=== PATIENT | female | born 1940 | race Caucasian/White ===

== ENCOUNTER 2016-07-07 02:55 | Observation (INO) ==
[2016-07-07] MEDS ORDERED: Azithromycin 500 MG in D5% in Water 250 ML IVPB ONE (02:57)
[2016-07-07] MEDS ORDERED: CefTRIAXone 1,000 MG in D5% in Water (Mini-Bag+) 100 ML IVPB ONE (02:57)
[2016-07-07] MEDS ORDERED: Ipratropium/Albuterol Neb 3 ML IH ONE (02:57)
[2016-07-07] MEDS ORDERED: 0.9 % Sodium Chloride 1,000 ML IVC SCH ×2 (03:00→09:19)
--- NOTE | 2016-07-07 03:06 | Emergency Department Note ---
Disposition Clinical Impression: Acute exacerbation of chronic obstructive airways disease, Community acquired pneumonia Disposition: Admitted As Inpatient Condition: Fair Referrals: NO,PCP [Primary Care Provider] - Forms: ED Satisfaction Letter Time of Disposition: 05:16 (kirk bobbi) SOB HPI - General Chief Complaint: ED Shortness of Breath/Dyspnea Stated Complaint: DEEPTHI/CHEST DISCOMFORT Time Seen by Provider: 07/07/16 02:56 Source: patient Mode of arrival: ambulatory Limitations: physical limitation (dysneanic) Nursing Notes Reviewed: Yes Vital Signs Reviewed: Yes - Related Data Home Medications Medication Instructions Recorded Confirmed No Known Home Drugs 02/29/16 07/07/16 Allergies Allergy/AdvReac Type Severity Reaction Status Date / Time No Known Allergies Allergy Verified 07/07/16 03:10 All systems ED: reviewed and negative except as stated. Constitutional: Reports: fever, chills. Denies: weakness Eyes: Denies: eye pain, eye discharge ENT ED: Denies: ear pain, throat pain Cardiovascular: Reports: palpitations. Denies: chest pain Respiratory: Reports: cough, dyspnea, wheezes, sputum production Gastrointestinal: Denies: abdominal pain, nausea, vomiting Genitourinary: Denies: urgency, dysuria Musculoskeletal: Denies: back pain, neck pain Integumentary: Denies: rash, abrasion Neurological: Denies: headache, weakness Psychiatric: Denies: anxiety Endocrine: Denies: fatigue Hematological/Lymphatic: Denies: easy bleeding Allergic/Immunologic: Denies: facial swelling Past Medical History - Past Medical History Attestation: Yes The following information was validated with the patient. Source: patient, old records reviewed, nursing notes reviewed Medical history: Reports: COPD, other (Bradycardia patient is supposed to have a pacemaker but refused to have it done 4-5 years ago patient is been to urgent care in the past has refused workup for COPD chest pain) Surgical history: Reports: cholecystectomy - Social History Smoking Status: Current some day smoker Smokeless Tobacco Status: No Alcohol use: Reports: none Physical Exam - General Limitations: physical limitation General appearance: alert, in no apparent distress, anxious - Head Head exam: atraumatic, normocephalic, normal inspection - Eye Eye exam: Present: normal appearance, PERRL, EOMI - ENT ENT exam: normal exam, normal oropharynx, mucous membranes moist, TM's normal bilaterally, normal external ear exam, other (PND) - Neck Neck exam: Present: normal inspection, full ROM, trachea midline - Chest Chest inspection: Present: normal inspection, symmetric chest wall rise - Respiratory Respiratory exam: Present: wheezes, accessory muscle use, prolonged expiratory phase - Cardiovascular Cardiovascular exam: Present: bradycardia, normal heart sounds - Abdominal Exam Abdominal exam: Present: soft, Non-Tender, normal bowel sounds - Expanded Upper Extremity Exam Shoulder exam: Present: normal inspection, full ROM Arm exam: Present: normal inspection, full ROM Elbow exam: Present: normal inspection, full ROM Forearm/Wrist exam: Present: normal inspection, full ROM Hand exam: Present: normal inspection, full ROM Vascular exam: Normal: capillary refill, radial pulse - Expanded Lower Extremity Exam Hip/Pelvis exam: Present: normal inspection, full ROM Upper leg exam: Present: normal inspection, full ROM Knee exam: Present: normal inspection, full ROM Lower leg exam: Present: normal inspection, full ROM Ankle exam: Present: normal inspection, full ROM Foot/toe exam: Present: normal inspection, full ROM Neurovascular/Tendon exam: Present: normal capillary refill, normal fine/light touch. Absent: motor deficit, sensory deficit, tendon deficit Gait: observed and normal - Back Exam Back exam: Present: normal inspection, full ROM. Absent: muscle spasm - Neurological Exam Neurological exam: Present: alert, oriented X3, CN II-XII intact - Psychiatric Psychiatric exam: Present: normal affect, normal mood - Skin Skin exam: Present: warm, dry, intact, normal color Course Course Narrative: Patient immediately seen and examined patient was immediately noted to be in bradycardia which appears to be actually a third heart block patient though with respiratory difficulty patient states though that her arrhythmia is unchanged from prior she is noted to have a slow heart rate states that she has had the cough and congestion she is having the dyspnea she is immediately given aerosol treatments coughing of yellow-green phlegm given a container to obtain specimen IV established antibiotics started laboratory results pending anticipated admission - Reevaluation(s) Reevaluation #1: Patient's 31 made it clear that she will not be transferred she will go home being transferred despite the fact that she shows evidence of bleeding in the third degree heart block and findings are consistent with advanced COPD with probably underlying pneumonia bronchitis Reevaluation #2: Spoke with patient about her cardiac arrhythmia she does not want a pacemaker does not want cardiac evaluation and she has been told that she had a mild heart attack the bottom portion of her heart is which is why she has a heart block in addition to this she is agreeable to staying only at our facility she refuses to be transferred to fungal to transfer her she said she will sign out AMA and due the fact the patient has lower lobe pneumonia she is agreed to stay here spoke with Dr. Black advised him of the situation chance to MedSurg stable Shortness of Breath/Dyspnea - MDM Narrative Medical decision making narrative: Patient seen and discussed the potential stated that included of pneumonia which could be influenza from the fact is that she has had fever for the past week she has got underlying COPD which could be a mucopurulent bronchitis which could also because some of the respiratory distress concerns her is that she may have an underlying myocardial infarction congestive heart failure cardiac arrhythmia which could be precipitating the events today I am even concerned this may Lung Cancer - Differential Diagnosis Likely: acute exacerbation of chronic obstructive airways disease, congestive heart failure, pneumonia, arrhythmia (complete heart block) - Medical Records Medical records reviewed: Yes I reviewed the patient's medical records. - Lab Data Lab results reviewed: Yes I reviewed the patient's lab results. - Radiology Data Radiology results reviewed: Yes I reviewed the patient's radiology results. ITS Impressions Chest X-Ray 07/07/16 02:56 IMPRESSION: No evidence for acute cardiopulmonary process. COPD. D/ / Regulo Sawant MD / Rgeulo Sawant MD Interpreting Provider: Regulo Sawant MD Chest CT 07/07/16 04:17 IMPRESSION: 1. Significantly limited study due to motion artifact. 2. Left lower lobe airspace disease could represent atelectasis or pneumonia. 3. Coronary artery disease. 4. Pulmonary nodules are suspected. Repeat chest CT is recommended once the patient is able to successfully suspend respirations. D/ / Nino Forrester MD / Nino Forrester MD Interpreting Provider: Nino Forrester MD - EKG Data EKG attestation: Yes I reviewed and interpreted this EKG. EKG results narrative: EKG rate 43 [place] appear to be wandering it marches out to be consistent 3rd degree heart block QRS 141 QT 497 access 101 Critical Care Time Critical Care Time: Yes Total Critical Care Time: 35 Attestation: Critical care performed: 35 minutes secondary to patient's respiratory difficulty but in addition that it appears that she is in a third-degree heart block but this may be chronic in etiology Time is exclusive of separately billable procedures. Time includes: direct patient care, patient reassessment, coordination of patient care, interpretation of data (laboratory data, radiology data, and respiratory data), review of patient's medical records, medical consultation and documentation of patient care. Procedures included in critical care time: Procedures excluded from critical care time:
[2016-07-07 03:48] LABS: INR 1.2; Prothrombin Time 12.8 Seconds (9.4-12.1)
[2016-07-07 03:58] LABS: BUN/Creatinine Ratio 21 (6-26); Blood Urea Nitrogen 18 mg/dL (7-20); Calcium 9.3 mg/dL (8.6-10.8); Carbon Dioxide 22 mEq/L (19-29); Chloride 104 mEq/L (98-109); Glucose 103 mg/dL (70-99); Osmolality,Calculated 294 (280-300); Potassium 3.8 mEq/L (3.5-4.5); Sodium 141 mEq/L (136-145); eGFR For African Americans > 60 (> 60); eGFR For Non-African Americans > 60 (> 60)
[2016-07-07 04:06] LABS: Hematocrit 46.6 % (35.3-44.9); Hemoglobin 15.5 g/dL (11.5-15.4); Mean Corpuscular HGB Conc 33.3 g/dL (31.6-35.5); Mean Corpuscular Volume 87.3 fL (83.0-100.0); Mean Platelet Volume 10.4 fL (9.4-12.4); Platelet Count 294 K/mcL (140-400); Red Blood Count 5.34 M/mcL (3.82-4.97); Red Cell Distribution Width 13.6 % (11.5-14.5)
[2016-07-07 04:15] LABS: Lymphocytes # 3.8 K/mcL (0.6-4.6); Monocytes # 1.3 K/mcL (0.0-1.3); Neutrophils # 10.8 K/mcL (1.6-8.9)
[2016-07-07 04:16] LABS: Anisocytosis 1+ (Not Present); Dohle Bodies Present (Not Present); Large Platelets Present (Not Present); Platelet Estimate Normal (Normal)
[2016-07-07 04:17] LABS: Toxic Granulation Present (Not Present)
[2016-07-07 04:18] LABS: Reactive Lymphocytes Present (Not Present); Smudge Cells Present (Not Present)
[2016-07-07] MEDS ORDERED: FLU VACC QS2016-17 36MOS UP/PF 0.5 ML SYRINGE IM ONE ×2 (08:44→09:19)
[2016-07-07] MEDS ORDERED: Ibuprofen 400 MG TABLET PO PRN ×2 (09:19→09:23)
[2016-07-07] MEDS ORDERED: Ondansetron ODT 4 MG TAB.RAPDIS SL PRN ×2 (09:19→09:23)
[2016-07-07] MEDS ORDERED: Naloxone 0.4 MG/ML INJ IVP PRN ×2 (09:19→09:23)
[2016-07-07] MEDS ORDERED: Azithromycin 500 MG in D5% in Water 250 ML IVPB SCH (09:19)
[2016-07-07] MEDS ORDERED: Acetaminophen 325 MG TABLET PO PRN ×2 (09:19→09:23)
[2016-07-07] MEDS ORDERED: CefTRIAXone 1,000 MG in D5% in Water (Mini-Bag+) 100 ML IVPB SCH (09:19)
[2016-07-07] MEDS: 0.9 % Sodium Chloride 1,000 ML IVC SCH ×3 (11:41→16:56)
--- NOTE | 2016-07-07 14:22 | Electrocardiograph Report ---
[address] [place], [place] [address] Test Date: 2016-07-07 Pat Name: María Rivera Department: [id number] Room: [facility] Gender: F [employer]er: : 1940 Requested By: Earline Alberts Order Number: [id number] Reading MD: Alexx Krause Measurements Intervals [place] Rate: 43 P: [place]: 0 QRS: 101 QRSD: 141 T: 62 QT: 497 QTc: 442 Interpretive Statements COMPLETE HEART BLOCK VENTRICULAR ESCAPE TY Electronically Signed On 07-07-2016 14:20:49 EST by Alexx Krause
--- NOTE | 2016-07-07 14:24 | Internal Med History&Physical ---
Date of Encounter: 07/07/16 Time of Encounter: 12:15 Assessment and Plan (1) Community acquired pneumonia Current visit: Yes Status: Acute She has been started on Rocephin and Zithromax. Lactobacillus will be added. Room air oximetry will be checked prior to discharge. Further workup done as needed. Internal Medicine - H&P: HPI Chief complaint: Dyspnea Admitted From: Home Plans for Post Hospital Care: Home History of present illness: Ms. Rivera is a 75 year old female who came to the hospital complaining of one week history of dyspnea. She had cough productive of clear sputum. She was evaluated in emergency room and felt to have exaceration of COPD and left lung pneumonia. She was admitted to [facility] floor for ongoing care needs. Respiratory history is significant for having smoked from age [age] up to 2-1/2 packs per day. She denies previous pneumonia. She has not had PFTs and does not wear home oxygen. She states she has not been to a physician in many years. Past Med Surg Social Fam HX - Past Medical History Medical history: COPD, GERD, other Psychiatric history: no psych history - Past Surgical History Surgical History: cholecystectomy - Social History Smoking Status: Former smoker Smokeless Tobacco Status: No Alcohol use: none Drug use: none Internal Medicine - H&P: Meds No Known Home Drugs 02/29/16 [History] Allergies No Known Allergies Allergy (Verified 07/07/16 03:10) All Systems PM: A 10-system review of systems was performed and is negative for pertinent findings except as documented above in the HPI. Review of systems: Gen.: She states her weight has been stable last few months Cardiovascular: She denies [place] hypertension heart failure angina DVT or pulmonary embolus Respiratory: As per history of present illness GI: She has had cholecystectomy. She has GERD. She denies disorders of her liver or exocrine pancreas : She has had occasional hematuria but has not had evaluation. She denies other kidney or bladder disorders. Neurologic: She denies large distribution strokes or seizures. Endocrine: She denies diabetes or thyroid disease or hyperlipidemia Hematology/oncology: She denies blood disorders cancers are anemia Psychiatric: She has anxiety depression mental health issues Musculoskeletal: She has DJD but denies gout or other bone joint or muscle disorders. - Constitutional Vitals: Temp Pulse Resp BP Pulse Ox 97.6 F 45 18 180/73 92 L 07/07/16 09:19 07/07/16 09:19 07/07/16 09:19 07/07/16 09:19 07/07/16 09:19 Exam: Gen.: She is a well-developed well-nourished female who appears in no severe distress at present. HEENT: Head is atraumatic and normocephalic. Eyes: EOMI. There is no scleral icterus. Mouth: Mucosa is moist. Neck: Supple and nontender. There is no thyromegaly or adenopathy. Heart: Regular without murmurs gallops or ectopics. Lungs: No wheezes or crackles heard. Abdomen: Soft and nontender. No masses or guarding noted. Extremities: There is no cyanosis edema or clubbing. Dorsalis pedis and posterior tibial pulses are 1-2 over 2 bilaterally. Neurologic: Mental status: She is talkative and a good historian. Cranial nerves: Smile is symmetric. Forehead wrinkles bilaterally. Tongue protrudes midline. EOMI. Motor: There is no pronator drift. Cerebellar: Finger is intact bilaterally. Skin: Warm and dry Internal Med - H&P Results - Labs CBC & Chem 7: 07/07/16 03:10 07/07/16 03:10
[2016-07-07] MEDS: Lactobacillus 1 EACH CAP.SPRINK PO SCH (20:17)
[2016-07-08] MEDS: CefTRIAXone 1,000 MG in D5% in Water (Mini-Bag+) 100 ML IVPB SCH (02:13)
[2016-07-08] MEDS: Azithromycin 500 MG in D5% in Water 250 ML IVPB SCH (03:18)
[2016-07-08] MEDS: 0.9 % Sodium Chloride 1,000 ML IVC SCH (04:45)
[2016-07-08 05:00] LABS: Basophils % 0.3 %; Hematocrit 39.7 % (35.3-44.9); Hemoglobin 13.4 g/dL (11.5-15.4); Immature Granulocytes % 3.2 % (0-4); Lymphocytes # 1.7 K/mcL (0.6-4.6); Lymphocytes % 10.5 %; Mean Corpuscular HGB Conc 33.8 g/dL (31.6-35.5); Mean Corpuscular Hemoglobin 28.9 pg (28.0-33.3); Mean Corpuscular Volume 85.7 fL (83.0-100.0); Mean Platelet Volume 10.3 fL (9.4-12.4); Monocytes % 9.2 %; Neutrophils # 12.1 K/mcL (1.6-8.9); Platelet Count 318 K/mcL (140-400); Red Blood Count 4.63 M/mcL (3.82-4.97); Red Cell Distribution Width 13.5 % (11.5-14.5); Segmented Neutrophils % 76.8 %
[2016-07-08 05:13] LABS: Basophils # 0.1 K/mcL (0.0-0.2); Monocytes # 1.4 K/mcL (0.0-1.3)
[2016-07-08 05:29] LABS: Alanine Aminotransferase 21 Units/L (0-55); Albumin 2.6 g/dL (3.5-5.0); Albumin/Globulin Ratio 0.6 (1.1-2.2); Alkaline Phosphatase 50 Units/L (38-126); Aspartate Amino Transferase 33 Units/L (5-34); BUN/Creatinine Ratio 22 (6-26); Bilirubin,Total 0.3 mg/dL (0.2-1.2); Blood Urea Nitrogen 16 mg/dL (7-20); Calcium 8.6 mg/dL (8.6-10.8); Carbon Dioxide 20 mEq/L (19-29); Chloride 109 mEq/L (98-109); Globulin 4.2 g/dL (2.4-3.5); Glucose 169 mg/dL (70-99); Osmolality,Calculated 295 (280-300); Potassium 3.7 mEq/L (3.5-4.5); Sodium 140 mEq/L (136-145); Total Protein 6.8 g/dL (6.0-8.3); eGFR For African Americans > 60 (> 60); eGFR For Non-African Americans > 60 (> 60)
[2016-07-08 05:50] LABS: Thyroid Stimulating Hormone 0.553 mcIU/mL (0.350-4.840)
[2016-07-08 06:07] LABS: Platelet Estimate Normal (Normal)
[2016-07-08] MEDS: Lactobacillus 1 EACH CAP.SPRINK PO SCH ×2 (09:28→19:16)
--- NOTE | 2016-07-08 10:20 | Internal Med Progress Note ---
Date of Encounter: 07/08/16 Time of Encounter: 10:10 - Assessment and plan (1) Community acquired pneumonia Current Visit: Yes Status: Acute Assessment and plan: July 08. Continue Rocephin and Zithromax and lactobacillus. We will recheck CT scan in a.m. for follow-up on possible pulmonary nodules. We will check room air oximetry in a.m. Anticipate discharge home tomorrow. - Subjective Interval history: July 08. She has no new complaints and feels better - Constitutional Vitals: Temp Pulse Resp BP Pulse Ox 97.4 F L 40 18 150/61 98 07/08/16 07:00 07/08/16 07:00 07/08/16 07:00 07/08/16 07:00 07/08/16 07:00 Exam: She is resting comfortably in bed. Her affect is bright and cheerful. I reviewed her medications and lab results. Internal Medicine: Result - Labs CBC & Chem 7: 07/08/16 04:40 07/08/16 04:40 Labs: Short CBC 07/08/16 Range/Units 04:40 WBC 15.7 H (4.3-11.1) K/mcL Hgb 13.4 D (11.5-15.4) g/dL Hct 39.7 (35.3-44.9) % Plt Count 318 (140-400) K/mcL Neutrophils # 12.1 H (1.6-8.9) K/mcL BMP 07/08/16 04:40 Sodium 140 Potassium 3.7 Chloride 109 Carbon Dioxide 20 BUN 16 Creatinine 0.72 Glucose 169 H Calcium 8.6 Liver Function 07/08/16 Range/Units 04:40 Total Bilirubin 0.3 (0.2-1.2) mg/dL AST 33 (5-34) Units/L ALT 21 (0-55) Units/L Alkaline Phosphatase 50 (38-126) Units/L Albumin 2.6 L (3.5-5.0) g/dL - ABG Interpretation ABG results: PT/INR, D-dimer PT 12.8 Seconds (9.4-12.1) H 07/07/16 03:10 Consult Discharge Plan - Plan Referrals: NO,PCP [Primary Care Provider] - 1 week
[2016-07-09] MEDS: CefTRIAXone 1,000 MG in D5% in Water (Mini-Bag+) 100 ML IVPB SCH (02:09)
[2016-07-09] MEDS: Azithromycin 500 MG in D5% in Water 250 ML IVPB SCH (03:02)
[2016-07-09 06:19] LABS: Basophils # 0.1 K/mcL (0.0-0.2); Basophils % 0.3 %; Eosinophils % 0.1 %; Hematocrit 42.2 % (35.3-44.9); Immature Granulocytes % 2.5 % (0-4); Lymphocytes # 2.4 K/mcL (0.6-4.6); Lymphocytes % 14.1 %; Mean Corpuscular HGB Conc 33.2 g/dL (31.6-35.5); Mean Corpuscular Hemoglobin 28.8 pg (28.0-33.3); Mean Corpuscular Volume 86.8 fL (83.0-100.0); Mean Platelet Volume 10.3 fL (9.4-12.4); Monocytes # 2.8 K/mcL (0.0-1.3); Neutrophils # 11.6 K/mcL (1.6-8.9); Platelet Count 371 K/mcL (140-400); Red Blood Count 4.86 M/mcL (3.82-4.97); Red Cell Distribution Width 13.4 % (11.5-14.5)
[2016-07-09] MEDS: Lactobacillus 1 EACH CAP.SPRINK PO SCH (08:29)
[2016-07-09 11:01] VITALS: BP 185/61
--- NOTE | 2016-07-09 12:07 | Discharge Summary ---
Date of Encounter: 07/09/16 Time of Encounter: 11:50 - Discharge Diagnosis (1) Community acquired pneumonia Priority: Primary Status: Acute - Discharge Medications Prescriptions: Amlodipine [Norvasc] 10 mg PO DAILY #30 tablet Doxycycline 100 mg PO BID #14 capsule Lactobacillus [Culturelle] 1 each PO BID #14 cap.sprink Levofloxacin [Levaquin] 500 mg PO DAILY #7 tablet Home Medications: Amlodipine [Norvasc] 10 mg PO DAILY #30 tablet 07/09/16 [Rx] Doxycycline 100 mg PO BID #14 capsule 07/09/16 [Rx] Lactobacillus [Culturelle] 1 each PO BID #14 cap.sprink 07/09/16 [Rx] Levofloxacin [Levaquin] 500 mg PO DAILY #7 tablet 07/09/16 [Rx] Allergies/Adverse Reactions: Allergies No Known Allergies Allergy (Verified 07/07/16 03:10) Procedures/tests Complete & Pending: Procedures Performed prior 72 hours Category Date Time Status CT chest wo con [CT] Routine Cat Scan 07/09/16 08:00 Completed Date of admission: 07/07/16 05:33 Primary care physician: PCP NO - Patient Status Disposition: Home, Self-Care Condition: Fair Overall status at discharge: patient is progressing back to baseline - Discharge Instructions Follow Up With: Rachelle Nunez, [employer]EL[employer] [Advanced Practice Nurse] - 1 week - Diet and Activity Activity: resume usual activities as tolerated Diet: advance to your usual diet Hospital course: Ms. Rivera is a 75 year old female who came to the hospital complaining of one week history of dyspnea. She had cough productive of clear sputum. She was evaluated in emergency room and felt to have exaceration of COPD and left lung pneumonia. She was admitted to [facility] floor for ongoing care needs. Initial orders were written by the emergency room physician. I saw her on July 07 and performed the history and physical. A chest CT scan was of poor quality but showed left lower lobe infiltrate and possible pulmonary nodules. The chest CT was repeated on July 09 which confirmed the left lower lobe infiltrate and showed numerous nodules bilaterally less than 5 mm diameter. Recommendation was for repeat chest CT in 3-6 months. I will let her PCP order this. She was started on Rocephin and Zithromax empirically for pneumonia. WBC did not improve with a slight rise to 17.3 on the day of discharge. There were 67% segs present. She remained afebrile during hospitalization. I will discharge her on Levaquin and doxycycline. Her PCP can follow her clinically to monitor resolution of the pneumonia. Room air oximetry was attempted but she was only able to walk a few feet. Her saturation remained above 90% on the short walk. She will not be prescribed home oxygen. She declined home health services. EKG in emergency room showed complete heart block with either LV origin escape rhythm or junctional rhythm with right bundle branch block. She was notified of this in emergency room but declined referral for evaluation for pacemaker. She remained asymptomatic. Her blood pressure was elevated on admission and she was given Norvasc 5 mg daily during her hospital stay. Her pressure was still not controlled well so Norvasc will be increased to 10 mg daily at discharge. Her PCP can monitor this. On July 09 she felt stable for discharge home which I felt was reasonable. She will follow with a PCP at [facility] within one week. - Time Spent with Patient Total time spent providing and/or coordinating discharge services: - Constitutional Vitals: Temp Pulse Resp BP Pulse Ox 97.4 F L 44 20 185/61 95 07/09/16 10:59 07/09/16 10:59 07/09/16 10:59 07/09/16 10:59 07/09/16 11:04
[2016-07-09] MEDS ORDERED: FLU VACC QS2016-17 36MOS UP/PF 0.5 ML SYRINGE IM ONE (12:45)
== END 2016-07-09 12:41 | disposition home or self-care (01) ==
LOC: INPPIK 02:55 → EMEROOPIK 02:55 → INPPIK 07:45
PROVIDERS: ADMIT Internal Medicine; ATTEND Internal Medicine

== ENCOUNTER 2018-08-30 10:31 | Inpatient (IN) ==
[2018-08-30] MEDS ORDERED: Furosemide 40 MG/4 ML VIAL IVP ONE (10:34)
--- NOTE | 2018-08-30 10:35 | Emergency Department Note ---
Disposition Clinical Impression: Third degree heart block, Weakness generalized, Elevated troponin I level Congestive heart failure Qualifiers: Heart failure type: unspecified Heart failure chronicity: acute Qualified Code(s): I50.9 - Heart failure, unspecified Dyspnea Qualifiers: Dyspnea type: shortness of breath Qualified Code(s): R06.02 - Shortness of breath Disposition: Admitted As Inpatient Condition: Serious Referrals: NONE,PCP [Primary Care Provider] - Forms: ED Satisfaction Letter SOB HPI - General Chief Complaint: ED Shortness of Breath/Dyspnea Stated Complaint: SHORTNESS OF BREATH Time Seen by Provider: 08/30/18 10:34 Source: patient, family, EMS Mode of arrival: EMS Limitations: physical limitation, age Nursing Notes Reviewed: Yes Vital Signs Reviewed: Yes - History of Present Illness Patient presents with a history of severe shortness of breath. She states she was where she "cannot walk" and she cannot lay down. She indicates this has been present since her last hospitalization in early July. At that time she did have an AL with a troponin to 73, COPD exacerbation and third-degree heart block. She ultimately signed out AGAINST MEDICAL ADVICE and she refused any intervention. She indicated that she would be more comfortable in her recliner at home and department of the hospital. She currently denies any chest pain but states her dyspnea is not able to be tolerated. She denies increased cough or any sputum production. She denies fevers, chills, diaphoresis or nausea. She is not having abdominal or back complaints. She has generalized malaise and sh ortness of breath. With this she has had increased lower extremity swelling for 2-3 days. She is not on oxygen at home. She presents by EMS with a transmitted EKG that was performed at 10:10 AM. This has a rate of 50 and is in third- degree heart block with ventricular escape. No other acute changes are noted to suggest acute ischemia or infarction. This is on my interpretation Pt Subjective Complaint: shortness of breath Onset (ago): week(s) Severity: moderate, severe Consistency/Duration: gradually worsening Improves with: oxygen, upright position Worsens with: lying flat, exertion, movement, coughing Known history of: COPD, other (Surgically heart block, recent AL) Associated symptoms: Reports: wheezing, orthopnea, sense of impending doom. Denies: chest pain, pain with inspiration, fever, cough, sputum production, lower extremity pain, polyuria, polydipsia, parasthesias, palpitations, hemoptysis, diaphoresis, nausea/vomiting, syncope, abdominal pain, rash Treatment prior to arrival: oxygen Cough present: No - Related Data Home oxygen amount: none Home Medications Medication Instructions Recorded Confirmed Atorvastatin [Lipitor] 80 mg PO HS 08/30/18 08/30/18 Lisinopril [Zestril] 5 mg PO DAILY 08/30/18 08/30/18 Nitroglycerin [Nitrostat] 0.4 mg SL Q5MIN PRN MDD 3 08/30/18 08/30/18 Ticagrelor [Brilinta] 90 mg PO BID 08/30/18 08/30/18 Previous Rx's Medication Instructions Recorded Aspirin 81 mg PO DAILY #30 tab.chew 07/08/18 Allergies Allergy/AdvReac Type Severity Reaction Status Date / Time No Known Allergies Allergy Verified 07/08/18 11:30 All systems ED: reviewed and negative except as stated. Past Medical History - Past Medical History Attestation: Yes The following information was validated with the patient. Source: patient, old records reviewed, obtained from family, nursing notes reviewed Medical history: Reports: COPD, coronary artery disease, GERD, hyperlipidemia, hypertension, myocardial infarction, other (Third degree heart block) Surgical history: Reports: cholecystectomy Psychiatric history: Reports: no psych history - Social History Smoking Status: Former smoker Smokeless Tobacco Status: No Alcohol use: Reports: none Drug use: Reports: none Physical Exam - General Limitations: no limitations General appearance: alert, anxious, in distress - Head Head exam: atraumatic, normocephalic, normal inspection - Eye Eye exam: Present: normal appearance, PERRL, EOMI - ENT ENT exam: normal exam, normal oropharynx, mucous membranes moist - Neck Neck exam: Present: normal inspection, full ROM, trachea midline. Absent: tenderness - Chest Chest inspection: Present: normal inspection, symmetric chest wall rise. Absent: tenderness - Respiratory Respiratory exam: Present: respiratory distress, prolonged expiratory phase, other (Rales). Absent: wheezes - Cardiovascular Cardiovascular exam: Present: regular rate, bradycardia, other (Third-degree heart block with ventricular escape) - Abdominal Exam Abdominal exam: Present: soft, Non-Tender, normal bowel sounds. Absent: tenderness, distention, guarding, rebound, rigidity - Extremities Exam Extremities exam: Present: normal inspection, full ROM, normal capillary refill. Absent: tenderness, pedal edema, calf tenderness - Expanded Lower Extremity Exam Neurovascular/Tendon exam: Present: normal capillary refill. Absent: motor deficit, sensory deficit, tendon deficit Gait: not tested/not observed - Neurological Exam Neurological exam: Present: alert, oriented X3 - Psychiatric Psychiatric exam: Present: agitated, anxious - Skin Skin exam: Present: warm, dry, intact, pallor. Absent: cyanosis Course Course Narrative: 1050: Patient's presentation has been discussed with her son. The patient does live with her son. He confirms that her primary problem is the increasing dyspnea and inability to do daily activities. She is only taking an aspirin a day use other medicines. She states that she is "very hardheaded" and that she will not do any cardiac procedures including catheterization or pacemaker. He also confirms that she will not go to a family doctor. He states that she is DNR CC status but does not know if she has signed any paperwork. He believes that he and his mother would be able to sign at this time if it has not been filled out before. He confirms that she has not been having any type of cough, fever, abdominal pain, vomiting or diarrhea. He does confirm that she has had increased leg swelling recently. I advised him that she appears to have some congestive heart failure and that could be coming from another heart attack, her rhythm, anemia, renal failure or multiple etiologies that we are evaluating. I have advised him that we are working to keep her comfortable with supplemental oxygen and will work within the restrictions of her CODE STATUS. 1105: After discussion with the patient's son we have looked for a signed DNR CC form in the EMR. I then talked to the patient and she does not believe she actually signed a form indicating her wishes. She is very adamant that she does not one compressions, intubation and that she would not wake up any time with a pacemaker or other cardiac intervention. I reviewed the DNR comfort care form with the patient and her son. They understand what treatments will and will not be performed under the DNR CC restrictions. She did not desire to sign the form and her son has also signed. He was present for the whole discussion with his mother. 1130: With return of testing, care has been discussed with Dr. Beltran. He is agreeable with continuing with comfort measures per the patient's request. She will continue with the Dalal to closely monitor her output and she will be on supplemental oxygen as needed. 1320: The patient has had an extended stay in the emergency department awaiting placement to the inpatient bed. She is continued with bradycardia and is oxygenating well and maintaining a normal blood pressure. Due to her immobility a Dalal catheter was placed and a urinalysis sent. Urine demonstrated infection and she has been administered a dose of Rocephin and orders have been written for continuation of this medicine daily. We continued to wait for inpatient bed to take her to the floor. Vital Signs Temperature 99.1 F 08/30/18 10:32 Pulse Rate 48 08/30/18 10:32 Respiratory Rate 16 08/30/18 10:32 Blood Pressure 165/74 08/30/18 10:32 O2 Sat by Pulse Oximetry 96 08/30/18 10:32 Temperature 99.1 F 08/30/18 10:32 Pulse Rate 46 08/30/18 12:41 Respiratory Rate 18 08/30/18 12:41 Blood Pressure 140/60 08/30/18 12:41 O2 Sat by Pulse Oximetry 94 08/30/18 12:41 Oxygen Delivery Oxygen Delivery Nasal Cannula Shortness of Breath/Dyspnea - Differential Diagnosis Likely: acute exacerbation of chronic obstructive airways disease, congestive heart failure, arrhythmia - Medical Records Medical records reviewed: Yes I reviewed the patient's medical records. Patient was admitted for similar on July 06 with the following hospital course: "History of present illness: Sánchezmarialuisa Ms. Rivera is a 77 year old female history of hypertension, hyperlipidemia, COPD, and chronic third degree AV block who presents to the ER with multiple com plaints. Her acute complaint is pain in her chest that goes into her back and down both arms. This started today. It worried her because she never had that pain before. She reports she has been vomiting several times today without abdominal pain or diarrhea. She then goes on to say that she has had some bloody bowel movements but this is been going on for months. She is not on any antiplatelet or anticoagulation medications. She was bradycardic in route. She states that they wanted to do a cardiac procedure on her in the past but she declined. No other complaints. At the ED, her HR is in 40s but BP was normal. Labs showed elevated WBC and RBC, troponin was elevated at 0.19. CTA chest is negative for PE but does have several chronic changes. EKG showed III degree AVB, ST elevated at I and aVL with reciprocal ST depression on II, III, and AVF. Cardiology was consulted." "07/08/18 Around noon Pt stated to nurse around noon that she had called her soon and she was leaving against medcial advise. Pt states she was not feeling comfortable in bed and she would feel more comfortable in her recliner at home. Son came in to pick her up. Pt declined instructions for Brilinta or any other meds and states she will only take ASA." Code status discussed with pt on admission was full code changed to DNRCC." Cardiology consultation: "A/P: STEMI Complete Heart Block COPD Patient declines any and all types of cardiac interventions. Discussed code status and she agrees with DNR status. Continue medical treatment with aspirin, BB, statin, brilinta and heparin x 72 hours, as tolerated. No echo indicated. Thank you for the consult, Rasta Palma MD [facility]" - Lab Data Lab results reviewed: Yes I reviewed the patient's lab results. Result diagrams: 08/30/18 10:50 08/30/18 10:50 Lab Results 08/30/18 08/30/18 08/30/18 Range/Units 10:50 10:50 10:50 WBC 14.4 H (4.3-11.1) K/mcL RBC 4.75 (3.82-4.97) M/mcL Hgb 13.7 (11.5-15.4) g/dL Hct 44.1 (35.3-44.9) % MCV 92.8 (83.0-100.0) fL MCH 28.8 (28.0-33.3) pg MCHC 31.1 L (31.6-35.5) g/dL RDW 15.6 H (11.5-14.5) % Plt Count 348 (140-400) K/mcL MPV 10.8 (9.4-12.4) fL Immature Gran % 0.6 (0-4) % Seg Neutrophils % 67.2 % Lymphocytes % 19.8 % Monocytes % 9.9 % Eosinophils % 2.0 % Basophils % 0.5 % Neutrophils # 9.7 H (1.6-8.9) K/mcL Lymphocytes # 2.9 (0.6-4.6) K/mcL Monocytes # 1.4 H (0.0-1.3) K/mcL Eosinophils # 0.3 (0.0-0.6) K/mcL Basophils # 0.1 (0.0-0.2) K/mcL PT 12.7 H (9.4-12.1) Seconds INR 1.1 D-Dimer 966 H (0-500) ng/mLFEU Sodium 141 (136-145) mEq/L Potassium 4.1 (3.5-5.1) mEq/L Chloride 105 (98-107) mEq/L Carbon Dioxide 24 (23-29) mEq/L BUN 15 (8-23) mg/dL Creatinine 0.83 (0.60-1.20) mg/dL Est GFR ( Amer) > 60 (> 60) Est GFR (Non-Af Amer) > 60 (> 60) BUN/Creatinine Ratio 18 (6-26) Glucose 181 H (70-105) mg/dL Calculated Osmolality 297 (280-300) Lactic Acid (0.5-2.2) mmol/L Calcium 9.6 (8.6-10.3) mg/dL Troponin I 0.10 H* (< 0.04) ng/mL B-Natriuretic Peptide (Less than 100) pg/mL Urine Color (Yellow) Urine Clarity (Clear) Urine pH (5.0-8.0) pH Units Ur Specific [place] (1.010-1.025) Urine Protein (Neg-Trace) mg/dL Urine Glucose (UA) (Normal) mg/dL Urine Ketones (Negative) mg/dL Urine Blood (Negative) Urine Nitrite (Negative) Urine Bilirubin (Negative) Urine Urobilinogen (Normal) mg/dL Ur Leukocyte Esterase (Negative) Urine Microscopic RBC (0-3) per hpf Urine Microscopic WBC (0-3) per hpf Ur Squamous Epith Cells (None-Few) per lpf Amorphous Sediment (Few) Urine Bacteria (None-Few) per hpf Urine Mucus (Few) Ur Culture Indicated? (NO) 08/30/18 08/30/18 08/30/18 Range/Units 10:50 10:50 12:08 WBC (4.3-11.1) K/mcL RBC (3.82-4.97) M/mcL Hgb (11.5-15.4) g/dL Hct (35.3-44.9) % MCV (83.0-100.0) fL MCH (28.0-33.3) pg MCHC (31.6-35.5) g/dL RDW (11.5-14.5) % Plt Count (140-400) K/mcL MPV (9.4-12.4) fL Immature Gran % (0-4) % Seg Neutrophils % % Lymphocytes % % Monocytes % % Eosinophils % % Basophils % % Neutrophils # (1.6-8.9) K/mcL Lymphocytes # (0.6-4.6) K/mcL Monocytes # (0.0-1.3) K/mcL Eosinophils # (0.0-0.6) K/mcL Basophils # (0.0-0.2) K/mcL PT (9.4-12.1) Seconds INR D-Dimer (0-500) ng/mLFEU Sodium (136-145) mEq/L Potassium (3.5-5.1) mEq/L Chloride (98-107) mEq/L Carbon Dioxide (23-29) mEq/L BUN (8-23) mg/dL Creatinine (0.60-1.20) mg/dL Est GFR ( Amer) (> 60) Est GFR (Non-Af Amer) (> 60) BUN/Creatinine Ratio (6-26) Glucose (70-105) mg/dL Calculated Osmolality (280-300) Lactic Acid 2.2 (0.5-2.2) mmol/L Calcium (8.6-10.3) mg/dL Troponin I (< 0.04) ng/mL B-Natriuretic Peptide 1293 H (Less than 100) pg/mL Urine Color Yellow (Yellow) Urine Clarity Turbid A (Clear) Urine pH 5.5 (5.0-8.0) pH Units Ur Specific [place] >= 1.030 H (1.010-1.025) Urine Protein >=300 H (Neg-Trace) mg/dL Urine Glucose (UA) Normal (Normal) mg/dL Urine Ketones Negative (Negative) mg/dL Urine Blood Moderate H (Negative) Urine Nitrite Positive A (Negative) Urine Bilirubin Small H (Negative) Urine Urobilinogen Normal (Normal) mg/dL Ur Leukocyte Esterase Trace H (Negative) Urine Microscopic RBC 5-15 H (0-3) per hpf Urine Microscopic WBC TNTC H (0-3) per hpf Ur Squamous Epith Cells Few (None-Few) per lpf Amorphous Sediment Many H (Few) Urine Bacteria Many H (None-Few) per hpf Urine Mucus Many H (Few) Ur Culture Indicated? YES A (NO) - Radiology Data Radiology results reviewed: Yes I reviewed the patient's radiology results. Single view chest x-ray is performed. This demonstrates acute pulmonary edema/CHF without infiltrate, foreign body or heart failure. Patient does have small Impressions Chest X-Ray 08/30/18 10:34 IMPRESSION: Interstitial edema with small bilateral pleural effusions. D/ / Jovita Dye MD / Jovita Dye MD Interpreting Provider: Jovita Dye MD effusions that appear to be more prominent on the right. The cardiac silhouette is normal. I do not see abnormality to the osseous structures of the chest. This is on my interpretation. - EKG Data EKG attestation: Yes I reviewed and interpreted this EKG. EKG results narrative: EKG demonstrates a third-degree heart block with a rate of 50/ventricular escape. The underlying atrial rate appears to be at about 145. I do not see acute ST or T-wave changes to suggest ischemia or infarction. Patient does have T-wave inversion in lead V1 and V2. This is on my interpretation. Rate: Reports: bradycardia (50) Critical Care Time Critical Care Time: Yes Total Critical Care Time: 50 Attestation: As this patient did present with signs and symptoms of potential life- threatening illness requiring my urgent intervention, total critical care time in this patient's care has been 50 minutes, not withstanding separately reportable procedures.
[2018-08-30 11:01] LABS: Basophils # 0.1 K/mcL (0.0-0.2); Basophils % 0.5 %; Eosinophils # 0.3 K/mcL (0.0-0.6); Hematocrit 44.1 % (35.3-44.9); Hemoglobin 13.7 g/dL (11.5-15.4); Immature Granulocytes % 0.6 % (0-4); Lymphocytes # 2.9 K/mcL (0.6-4.6); Lymphocytes % 19.8 %; Mean Corpuscular HGB Conc 31.1 g/dL (31.6-35.5); Mean Corpuscular Hemoglobin 28.8 pg (28.0-33.3); Mean Corpuscular Volume 92.8 fL (83.0-100.0); Mean Platelet Volume 10.8 fL (9.4-12.4); Monocytes # 1.4 K/mcL (0.0-1.3); Monocytes % 9.9 %; Neutrophils # 9.7 K/mcL (1.6-8.9); Platelet Count 348 K/mcL (140-400); Red Blood Count 4.75 M/mcL (3.82-4.97); Red Cell Distribution Width 15.6 % (11.5-14.5); Segmented Neutrophils % 67.2 %
[2018-08-30 11:12] LABS: INR 1.1; Prothrombin Time 12.7 Seconds (9.4-12.1)
[2018-08-30 11:17] LABS: BUN/Creatinine Ratio 18 (6-26); Blood Urea Nitrogen 15 mg/dL (8-23); Calcium 9.6 mg/dL (8.6-10.3); Carbon Dioxide 24 mEq/L (23-29); Chloride 105 mEq/L (98-107); Glucose 181 mg/dL (70-105); Osmolality,Calculated 297 (280-300); Potassium 4.1 mEq/L (3.5-5.1); Sodium 141 mEq/L (136-145); eGFR For Non-African Americans > 60 (> 60)
[2018-08-30 12:16] LABS: Bilirubin,Urine Small (Negative); Blood,Urine Moderate (Negative); Clarity,Urine Turbid (Clear); Color,Urine Yellow (Yellow); Glucose,Urine (UA) Normal (Normal); Ketones,Urine Negative (Negative); Leukocyte Esterase,Urine Trace (Negative); Nitrite,Urine Positive (Negative); PH,Urine 5.5 pH Units (5.0-8.0); Protein,Urine >=300 mg/dL (Neg-Trace); Specific Gravity,Urine >= 1.030 (1.010-1.025); Urobilinogen,Urine Normal (Normal)
[2018-08-30 12:25] LABS: Amorphous Sediment,Urine Many (Few); Bacteria,Urine Many per hpf (None-Few); Mucus,Urine Many (Few); Squamous Epithelial Cell,Urine Few per lpf (None-Few); WBC,Urine TNTC per hpf (0-3)
[2018-08-30] MEDS ORDERED: cefTRIAXone 2,000 MG in 0.9 % Sodium Chloride Mini Bag 100 ML IVPB ONE (12:37)
[2018-08-30] MEDS ORDERED: Mag Hydrox/Al Hydrox/Simeth 30 ML UDC PO PRN (13:57)
[2018-08-30] MEDS ORDERED: Naloxone 0.4 MG/ML INJ IVP PRN (13:57)
[2018-08-30] MEDS ORDERED: MOM Conc 10 ML UD.LIQ PO PRN (13:57)
[2018-08-30] MEDS: Furosemide 40 MG/4 ML VIAL IVP SCH (17:52)
[2018-08-30] MEDS: Aspirin 81 MG TAB.CHEW PO SCH (17:52)
--- NOTE | 2018-08-30 19:10 | Internal Med History&Physical ---
Date of Encounter: 08/30/18 Time of Encounter: 18:30 Assessment and Plan (1) Congestive heart failure Current visit: Yes Status: Acute She was started on IV Lasix in emergency room. She has refused [facility]. Echocardiogram has not been done. Antibiotics have been started for UTI and possible pneumonia. Qualifiers: Heart failure type: unspecified Heart failure chronicity: acute Qualified Code(s): I50.9 - Heart failure, unspecified (2) UTI (urinary tract infection) Current visit: Yes Status: Acute She has been started on Rocephin and Zithromax with lactobacillus. Qualifiers: Urinary tract infection type: site unspecified Hematuria presence: with hematuria Qualified Code(s): N39.0 - Urinary tract infection, site not specified; R31.9 - Hematuria, unspecified (3) Weakness generalized Current visit: Yes Status: Acute She states she has not walked since discharge from [facility] in July more than transfer/pivot. PT and OT evaluation will be ordered. (4) Third degree AV block Current visit: Yes Status: Chronic Generally asymptomatic. She has refused pacemaker Internal Medicine - H&P: HPI Chief complaint: Dyspnea Admitted From: Emergency Dept Plans for Post Hospital Care: Home History of present illness: Ms. Rivera is a 78 year old female came to emergency room complaining of increasing dyspnea. She reports the dyspnea has been present for several weeks but became more severe. She denies cough or chest pain. She reports 2 small episodes of vomiting in the past week. She was evaluated and emergency room was felt to have exacerbation of heart failure. She was admitted to [facility] floor for ongoing care needs. She was hospitalized at [facility] with STEMI 07/08/2018. She refused [facility]. She was found to have third-degree AV block which was previously known but again refused pacemaker. She states she is "too old for that". She was prescribed aspirin, Lipitor, lisinopril, Brilinta, and prn Nitrostat and signed out AMA. She states she has only taken the aspirin since discharge due to developing diarrhea soon after arriving home and did not feel she would absorbed the prescribed medications. Though the diarrhea has resolved she has chosen not to start any medicines other than the aspirin. She has not seen a PCP in over a year and ad mits she does not trust medical providers very much. She denies previous ND, hypertension, heart failure, angina, DVT or pulmonary embolus. Past Med Surg Social Fam HX - Past Medical History Medical history: COPD, coronary artery disease, GERD, hyperlipidemia, hypertension, myocardial infarction, other Additional medical history: hiatal hernia Psychiatric history: no psych history - Past Surgical History Surgical History: cholecystectomy - Social History Smoking Status: Former smoker Smokeless Tobacco Status: No Alcohol use: none Drug use: none Internal Medicine - H&P: Meds Aspirin 81 mg PO DAILY #30 tab.chew 07/08/18 [Rx] Atorvastatin [Lipitor] 80 mg PO HS 08/30/18 [History] Lisinopril [Zestril] 5 mg PO DAILY 08/30/18 [History] Nitroglycerin [Nitrostat] 0.4 mg SL Q5MIN PRN MDD 3 08/30/18 [History] Ticagrelor [Brilinta] 90 mg PO BID 08/30/18 [History] Allergy/AdvReac Type Severity Reaction Status Date / Time No Known Allergies Allergy Verified 07/08/18 11:30 All Systems PM: A 10-system review of systems was performed and is negative for pertinent findings except as documented above in the HPI. Review of systems: Gen.: Her weight has been decreased from 85.4 kg on 07/08/2018 to present weight of 77.111 kg which is similar to weight of July 2016. Cardiovascular: As per history of present illness Respiratory: She smoked from age [age] up to 2-1/2 packs per day. She has not had PFTs and does not wear home oxygen. GI: She has had cholecystectomy. She has GERD. She denies disorders of her liver or exocrine pancreas : She has had occasional hematuria but has not had evaluation. She denies other kidney or bladder disorders. Neurologic: She denies large distribution strokes or seizures. Endocrine: She denies diabetes or thyroid disease or hyperlipidemia Hematology/oncology: She denies blood disorders cancers are anemia Psychiatric: She has anxiety depression mental health issues Musculoskeletal: She has DJD but denies gout or other bone joint or muscle disorders. - Constitutional Vitals: Temp Pulse Resp BP Pulse Ox 97.6 F 43 14 126/60 94 08/30/18 15:40 08/30/18 15:40 08/30/18 15:40 08/30/18 15:40 08/30/18 15:40 Exam: Gen.: She is a well-developed well-nourished female resting comfortably in bed who appears minimally dyspneic at present time HEENT: Head is atraumatic and normocephalic. Eyes: EOMI. There is no scleral icterus. Mouth: Mucosa is moist. Neck: Supple and nontender. There is no thyromegaly or adenopathy noted. Heart: Regular without murmurs gallops or ectopics. Lungs: She has diminished breath sounds diffusely. She has scattered rhonchi posteriorly. No inspiratory crackles or expiratory wheezing is heard. Abdomen: Soft and nontender. No masses or guarding are noted. Extremities: There is no cyanosis edema or clubbing noted. Dorsalis pedis and posterior tibial pulses are trace palpable bilaterally. Neurologic: Mental status: She is talkative and a good historian. Cranial nerves: Smile is symmetric. Forehead wrinkles bilaterally. Tongue protrudes midline. EOMI. Motor: There is no pronator drift. Cerebellar: Finger to nose is intact bilaterally. Skin: Warm and dry Internal Med - H&P Results - Labs CBC & Chem 7: 08/30/18 10:50 08/30/18 10:50 Labs: Short CBC 08/30/18 Range/Units 10:50 WBC 14.4 H (4.3-11.1) K/mcL Hgb 13.7 (11.5-15.4) g/dL Hct 44.1 (35.3-44.9) % Plt Count 348 (140-400) K/mcL Neutrophils # 9.7 H (1.6-8.9) K/mcL BMP 08/30/18 10:50 Sodium 141 Potassium 4.1 Chloride 105 Carbon Dioxide 24 BUN 15 Creatinine 0.83 Glucose 181 H Calcium 9.6 Cardiac Enzymes 08/30/18 Range/Units 10:50 Troponin I 0.10 H* (< 0.04) ng/mL Urine 08/30/18 Range/Units 12:08 Urine Color Yellow (Yellow) Urine Clarity Turbid A (Clear) Urine pH 5.5 (5.0-8.0) pH Units Ur Specific [place] >= 1.030 H (1.010-1.025) Urine Protein >=300 H (Neg-Trace) mg/dL Urine Glucose (UA) Normal (Normal) mg/dL - Impressions ITS Impressions Chest X-Ray 08/30/18 10:34 IMPRESSION: Interstitial edema with small bilateral pleural effusions. D/ / Jovita Dye MD / Jovita Dye MD Interpreting Provider: Jovita Dye MD
[2018-08-30] MEDS: Lactobacillus 1 EACH CAP.SPRINK PO SCH (20:24)
[2018-08-30] MEDS: Azithromycin 500 MG in D5% in Water 250 ML IVPB SCH (20:24)
[2018-08-31 05:25] LABS: Basophils % 0.4 %; Eosinophils # 0.3 K/mcL (0.0-0.6); Eosinophils % 2.4 %; Hematocrit 43.1 % (35.3-44.9); Hemoglobin 13.6 g/dL (11.5-15.4); Immature Granulocytes % 0.4 % (0-4); Lymphocytes # 2.5 K/mcL (0.6-4.6); Lymphocytes % 22.6 %; Mean Corpuscular HGB Conc 31.6 g/dL (31.6-35.5); Mean Corpuscular Hemoglobin 28.9 pg (28.0-33.3); Mean Corpuscular Volume 91.5 fL (83.0-100.0); Mean Platelet Volume 10.5 fL (9.4-12.4); Monocytes # 1.5 K/mcL (0.0-1.3); Monocytes % 13.4 %; Neutrophils # 6.7 K/mcL (1.6-8.9); Platelet Count 283 K/mcL (140-400); Red Blood Count 4.71 M/mcL (3.82-4.97); Red Cell Distribution Width 15.3 % (11.5-14.5); Segmented Neutrophils % 60.8 %
[2018-08-31 05:43] LABS: BUN/Creatinine Ratio 16 (6-26); Blood Urea Nitrogen 14 mg/dL (8-23); Calcium 9.3 mg/dL (8.6-10.3); Carbon Dioxide 35 mEq/L (23-29); Chloride 100 mEq/L (98-107); Glucose 95 mg/dL (70-105); Osmolality,Calculated 292 (280-300); Potassium 3.9 mEq/L (3.5-5.1); Sodium 141 mEq/L (136-145); eGFR For Non-African Americans > 60 (> 60)
[2018-08-31 06:28] LABS: Thyroid Stimulating Hormone 4.722 mcIU/mL (0.340-5.600)
[2018-08-31] MEDS: Aspirin 81 MG TAB.CHEW PO SCH (08:55)
[2018-08-31] MEDS: Lactobacillus 1 EACH CAP.SPRINK PO SCH ×2 (08:55→20:28)
[2018-08-31] MEDS: Furosemide 40 MG/4 ML VIAL IVP SCH ×2 (08:55→17:25)
[2018-08-31] MEDS ORDERED: cefTRIAXone 1,000 MG in Water for inj. (sterile) 20 ML 10 ML IVP SCH (09:00)
--- NOTE | 2018-08-31 09:42 | Internal Med Progress Note ---
Date of Encounter: 08/31/18 Time of Encounter: 09:35 - Assessment and plan (1) Congestive heart failure Current Visit: Yes Status: Acute Assessment and plan: August 31. BN peptide has risen to 1653. Continue IV Lasix and antibiotics for pneumonia/UTI. Qualifiers: Heart failure type: unspecified Heart failure chronicity: acute Qualified Code(s): I50.9 - Heart failure, unspecified (2) UTI (urinary tract infection) Current Visit: Yes Status: Acute Assessment and plan: August 31. Urine culture report pending. Continue Rocephin and Zithromax with lact obacillus. Qualifiers: Urinary tract infection type: site unspecified Hematuria presence: with hematuria Qualified Code(s): N39.0 - Urinary tract infection, site not specified; R31.9 - Hematuria, unspecified (3) Weakness generalized Current Visit: Yes Status: Acute Assessment and plan: August 31. PT and OT evaluations have been ordered. (4) Third degree AV block Current Visit: Yes Status: Chronic Assessment and plan: August 31. Observe - Subjective Interval history: August 31. She has no new complaints. She feels less dyspneic. - Constitutional Vitals: Temp Pulse Resp BP Pulse Ox 97.5 F L 43 16 126/58 93 08/31/18 06:29 08/31/18 06:29 08/31/18 06:29 08/31/18 06:29 08/31/18 06:29 Exam: She is resting comfortably in bed and appears in no acute distress. She is wearing SAUD hose. Her affect is cheerful. She does not appear dyspneic. I reviewed her medications and lab results. Internal Medicine: Result - Labs CBC & Chem 7: 08/31/18 05:15 08/31/18 05:15 Labs: Short CBC 08/30/18 08/31/18 Range/Units 10:50 05:15 WBC 14.4 H 11.0 (4.3-11.1) K/mcL Hgb 13.7 13.6 (11.5-15.4) g/dL Hct 44.1 43.1 (35.3-44.9) % Plt Count 348 283 (140-400) K/mcL Neutrophils # 9.7 H 6.7 (1.6-8.9) K/mcL BMP 08/30/18 08/31/18 10:50 05:15 Sodium 141 141 Potassium 4.1 3.9 Chloride 105 100 Carbon Dioxide 24 35 H BUN 15 14 Creatinine 0.83 0.90 Glucose 181 H 95 Calcium 9.6 9.3 Cardiac Enzymes 08/30/18 Range/Units 10:50 Troponin I 0.10 H* (< 0.04) ng/mL Urine 08/30/18 Range/Units 12:08 Urine Color Yellow (Yellow) Urine Clarity Turbid A (Clear) Urine pH 5.5 (5.0-8.0) pH Units Ur Specific [place] >= 1.030 H (1.010-1.025) Urine Protein >=300 H (Neg-Trace) mg/dL Urine Glucose (UA) Normal (Normal) mg/dL - ABG Interpretation ABG results: PT/INR, D-dimer PT 12.7 Seconds (9.4-12.1) H 08/30/18 10:50 966 ng/mLFEU (0-500) H 08/30/18 10:50 - Impressions Impressions Chest X-Ray 08/30/18 10:34 IMPRESSION: Interstitial edema with small bilateral pleural effusions. D/ / Jovita Dye MD / Jovita Dye MD Interpreting Provider: Jovita Dye MD Consult Discharge Plan - Plan Referrals: NONE,PCP [Primary Care Provider] - 1 week
--- NOTE | 2018-08-31 09:48 | Electrocardiograph Report ---
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
[2018-08-31 18:29] VITALS: BP 123/67
[2018-08-31] MEDS: Azithromycin 500 MG in D5% in Water 250 ML IVPB SCH (20:27)
--- NOTE | 2018-09-01 18:59 | Discharge Summary ---
Date of Encounter: 09/01/18 Time of Encounter: 18:55 - Discharge Diagnosis (1) Congestive heart failure Priority: Primary Status: Acute Qualifiers: Heart failure type: unspecified Heart failure chronicity: acute Qualified Code(s): I50.9 - Heart failure, unspecified (2) UTI (urinary tract infection) Priority: Secondary Status: Acute Qualifiers: Urinary tract infection type: site unspecified Hematuria presence: with hematuria Qualified Code(s): N39.0 - Urinary tract infection, site not specified; R31.9 - Hematuria, unspecified (3) Weakness generalized Priority: Secondary Status: Acute (4) Third degree AV block Priority: Secondary Status: Chronic Hospital course: Ms. Rivera is a 78 year old female who came to emergency room complaining of increasing dyspnea. She reports the dyspnea has been present for several weeks but became more severe. She denies cough or chest pain. She reports 2 small episodes of vomiting in the past week. She was evaluated and emergency room was felt to have exacerbation of heart failure. She was admitted to [facility] floor for ongoing care needs. Initial orders were written by the emergency room physician. I saw her on August 30 and performed the history and physical. She was started on IV Lasix in emergency room. She had good diuresis with over 2000 mL urine output. Her dyspnea had improved when I saw her on August 31. She was started empirically on Rocephin and Zithromax in emergency room. Urine culture returned showing Escherichia coli with sensitivity to Rocephin. She remained asymptomatic from her third-degree AV block. She had PT and OT evaluations done the afternoon of August 31. The evening of August 31 she reported to the nurse she wished her IV and Dalal removed and stated she was leaving. She could not be persuaded to stay and signed out AMA. - Time Spent with Patient Total time spent providing and/or coordinating discharge services: - Discharge Medications Prescriptions: No Action Aspirin 81 mg PO DAILY #30 tab.chew Atorvastatin [Lipitor] 80 mg PO HS Ticagrelor [Brilinta] 90 mg PO BID Lisinopril [Zestril] 5 mg PO DAILY Nitroglycerin [Nitrostat] 0.4 mg SL Q5MIN PRN MDD 3 PRN Reason: Chest Pain Home Medications: Aspirin 81 mg PO DAILY #30 tab.chew 07/08/18 [Rx] Atorvastatin [Lipitor] 80 mg PO HS 08/30/18 [History] Lisinopril [Zestril] 5 mg PO DAILY 08/30/18 [History] Nitroglycerin [Nitrostat] 0.4 mg SL Q5MIN PRN MDD 3 08/30/18 [History] Ticagrelor [Brilinta] 90 mg PO BID 08/30/18 [History] Allergies/Adverse Reactions: 3 Allergy/AdvReac Type Severity Reaction Status Date / Time No Known Allergies Allergy Verified 07/08/18 11:30 Date of admission: 08/30/18 19:05 Primary care physician: PCP NONE Consults: 08/30/18 17:40 Consult to At Risk Paraprofessional [CONS] Routine Reason for SW Consult: Discharge Planning 08/30/18 19:01 Consult to Occupational Therapy [CONS] Routine Comment: Evaluate, develop and implement POC Reason for Consult: Weakness Does patient have active BEDREST order?: No Is patient medically & hemodynamically stable?: Yes Patient assessed for mobility or mobilized this visit?: Yes Consult to Physical Therapy [CONS] Routine Comment: Evaluate, develop and implement POC Reason for Consult: Weakness Does patient have active BEDREST order?: No Is patient medically & hemodynamically stable?: Yes Patient assessed for mobility or mobilized this visit?: Yes - Constitutional Vitals: Temp Pulse Resp BP Pulse Ox 97.5 F L 49 17 123/67 92 08/31/18 18:26 08/31/18 18:26 08/31/18 18:26 08/31/18 18:26 08/31/18 20:20 - Patient Status Disposition: Left Against Medical Advice Condition: Fair - Discharge Instructions Follow Up With: NONE,PCP [Primary Care Provider] - 1 week
== END 2018-08-31 23:34 | disposition left against medical advice (07) | DRG 291 ==
LOC: EMEROOPIK 10:31 → INPPIK 10:31
PROVIDERS: ADMIT Internal Medicine; ATTEND Internal Medicine

== ENCOUNTER 2018-10-10 09:54 | Inpatient (IN) ==
--- NOTE | 2018-10-10 10:03 | Emergency Department Note ---
Disposition Clinical Impression: Third degree AV block, Acute exacerbation of chronic obstructive airways disease UTI (urinary tract infection) Qualifiers: Urinary tract infection type: site unspecified Hematuria presence: without hematuria Qualified Code(s): N39.0 - Urinary tract infection, site not specified Community acquired pneumonia Qualifiers: Laterality: unspecified laterality Qualified Code(s): J18.9 - Pneumonia, unspecified organism Disposition: Admitted As Inpatient Condition: Fair Referrals: Rachelle Nunez CNP [Primary Care Provider] - Forms: ED Satisfaction Letter Time of Disposition: 13:14 SOB HPI - General Chief Complaint: ED Shortness of Breath/Dyspnea Stated Complaint: shortness of breath Time Seen by Provider: 10/10/18 09:55 Source: patient, family Mode of arrival: wheelchair Limitations: no limitations Nursing Notes Reviewed: Yes Vital Signs Reviewed: Yes - History of Present Illness Patient presents to the ED via family complaining of shortness of breath and leg swelling. She states symptoms been going on ever since she was last hospi talized here a few weeks ago. She states shortness breath and leg swelling has been progressively worsening. She denies any chest pain but states that "her left lung feels full". She also reports some chronic intermittent lightheadedness. No abdominal pain, nausea, vomiting or diarrhea. No fever or chills. She has a chronic cough that is productive of clear phlegm. Patient was admitted at [facility] and July for an MRI. She states they wanted to do a cardiac catheterization but she refused. According to records she apparently signed out AGAINST MEDICAL ADVICE after a few days of medical management. She was then admitted here at [address] from August 30 to 514 acute on chronic CHF exacerbation and was treated with IV diuresis. She apparently signed out again AGAINST MEDICAL ADVICE on August 31. She did sign a DNR CC order at that time. She has since followed up with her primary care doctor has been started on 20 of Lasix daily. She reports taking all of her medications. She does not wear oxygen at home. History is notable for COPD, CHF, CAD, hypertension, high cholesterol and GERD. According to her son she always has a slow heart rate. According to records she has a chronic third degree block that has been present at least since July. - Related Data Home Medications Medication Instructions Recorded Confirmed Atorvastatin [Lipitor] 40 mg PO HS 08/30/18 10/10/18 Nitroglycerin [Nitrostat] 0.4 mg SL Q5MIN PRN MDD 3 08/30/18 10/10/18 Ticagrelor [Brilinta] 90 mg PO BID 08/30/18 10/10/18 Furosemide [Lasix] 20 mg PO DAILY 10/10/18 10/10/18 amLODIPine [Norvasc] 5 mg PO DAILY 10/10/18 10/10/18 hydrOXYzine HCl [Hydroxyzine HCl] 25 mg PO Q8HR 10/10/18 10/10/18 Allergies Allergy/AdvReac Type Severity Reaction Status Date / Time No Known Allergies Allergy Verified 07/08/18 11:30 Constitutional: Denies: fever, chills, weakness, weight change Eyes: Denies: eye pain, eye discharge, vision change ENT ED: Denies: ear pain, throat pain, dental pain, hearing loss, epistaxis, congestion, dysphagia Cardiovascular: Reports: as per HPI, dyspnea on exertion, orthopnea, edema, paroxysmal nocturnal dyspnea. Denies: chest pain, palpitations, syncope Respiratory: Reports: cough, dyspnea, sputum production (clear). Denies: wheezes, hemoptysis, stridor Gastrointestinal: Denies: abdominal pain, nausea, vomiting, diarrhea, constipation, hematemesis, melena, hematochezia Genitourinary: Denies: dysuria, frequency, hematuria, discharge Musculoskeletal: Denies: back pain, neck pain, arthralgia, myalgia Integumentary: Denies: rash, abrasion, lesions Neurological: Denies: headache, weakness, numbness, paresthesias, confusion, abnormal gait, vertigo Psychiatric: Denies: anxiety, depression, suicidal thoughts, homicidal thoughts, auditory hallucinations, visual hallucinations Endocrine: Denies: fatigue Hematological/Lymphatic: Denies: easy bleeding, easy bruising Allergic/Immunologic: Denies: facial swelling, urticaria Past Medical History - Past Medical History Medical history: Reports: COPD, coronary artery disease, GERD, hyperlipidemia, hypertension, myocardial infarction, other Surgical history: Reports: cholecystectomy Psychiatric history: Reports: no psych history - Social History Smoking Status: Former smoker Smokeless Tobacco Status: No Alcohol use: Reports: none Drug use: Reports: none Physical Exam - General Limitations: physical limitation General appearance: alert, anxious - Head Head exam: atraumatic, normocephalic, normal inspection - Eye Eye exam: Present: normal appearance, PERRL, EOMI - ENT ENT exam: normal exam, normal oropharynx, mucous membranes moist - Neck Neck exam: Present: normal inspection, full ROM, trachea midline - Chest Chest inspection: Present: normal inspection, symmetric chest wall rise - Respiratory Respiratory exam: Present: other (crackles at bases). Absent: respiratory distress, wheezes - Cardiovascular Cardiovascular exam: Present: regular rate, normal rhythm, normal heart sounds - Abdominal Exam Abdominal exam: Present: soft, Non-Tender. Absent: tenderness, distention, guarding, rebound, rigidity - Extremities Exam Extremities exam: Present: normal inspection, full ROM, pedal edema (2+). Absent: tenderness - Back Exam Back exam: Present: normal inspection, full ROM. Absent: tenderness - Neurological Exam Neurological exam: Present: alert, oriented X3 - Psychiatric Psychiatric exam: Present: normal affect, normal mood - Skin Skin exam: Present: warm, dry, intact, normal color Course Course Narrative: Patient presents to the ED with progressively worsening shortness of breath and lower extremity swelling is no grossly worsening since she signed out AMA after being treated with IV diuretics for her CHF exacerbation. On arrival she is afebrile, hemodynamically stable and nontoxic in appearance however oxygen saturations are 90% on room air. She improved to 93-94% on 2 L. She has significant lower extremity swelling. She is bradycardic in the upper 40s to low 50s. EKG on arrival shows a third-degree block which appears unchanged from August 30 although she had a high atrial rate at that time. She has crackles at the bases on exam concerning for fluid overload again. Will obtain lab work and chest x-ray. Will plan for her likely IV diuresis. - Reevaluation(s) Reevaluation #1: Laboratory does show mild leukocytosis with left shift. Chest x-ray shows pleural effusions with possible underlying consolidation as well. Troponin is 0.1 which is unchanged from her last admission for CHF exacerbation. I suspect this is simple persistent strain from her CHF. D-dimer is elevated over 1000. Was elevated on her last admission a CTA was not performed at that time. She did have a CT dissection study back in July that was specifically negative for dissection. Will check CTA for possibility of PE. Reevaluation #2: Patient remains anxious and is unable to lie flat for CT scan due to reported dyspnea despite being on oxygen. We will give a small dose of IV Ativan. Reevaluation #3: Informed by radiology staff but CT scan was able to be obtained without the need for Ativan. Time: 11:35 Additional Reevaluation(s): 13:11 - CT scan was able to be obtained and did not show any evidence of PE. There are pleural effusions and some questionable infiltrate which was Burak seen on chest x-ray. Patient started been started on antibiotics which will also cover the possible UTI revealed in her urinalysis. Discussed with patient the need for admission for IV diuresis and she is in agreement. I spoken to the hospitalist on-call, Dr. Beltran who has agreed to accept the patient. It has been confirmed the patient is still a DNR CC at this time. Vital Signs Temperature 97.8 F 10/10/18 09:56 Pulse Rate 48 10/10/18 09:56 Respiratory Rate 26 10/10/18 09:56 Blood Pressure 148/65 10/10/18 09:56 O2 Sat by Pulse Oximetry 90 10/10/18 09:56 Temperature 97.8 F 10/10/18 09:56 Pulse Rate 67 10/10/18 13:09 Respiratory Rate 18 10/10/18 13:09 Blood Pressure 100/58 10/10/18 13:09 O2 Sat by Pulse Oximetry 98 10/10/18 13:09 Oxygen Delivery Oxygen Delivery Nasal Cannula Shortness of Breath/Dyspnea - Differential Diagnosis Likely: acute exacerbation of chronic obstructive airways disease, congestive heart failure, pneumonia, pulmonary embolism - Medical Records Medical records reviewed: Yes I reviewed the patient's medical records. - Lab Data Lab results reviewed: Yes I reviewed the patient's lab results. Result diagrams: 10/10/18 10:17 10/10/18 10:17 Lab Results 10/10/18 10/10/18 10/10/18 Range/Units 10:17 10:17 10:17 WBC 14.8 H (4.3-11.1) K/mcL RBC 4.76 (3.82-4.97) M/mcL Hgb 13.3 (11.5-15.4) g/dL Hct 41.4 (35.3-44.9) % MCV 87.0 (83.0-100.0) fL MCH 27.9 L (28.0-33.3) pg MCHC 32.1 (31.6-35.5) g/dL RDW 14.6 H (11.5-14.5) % Plt Count 354 (140-400) K/mcL MPV 10.8 (9.4-12.4) fL Immature Gran % 0.8 (0-4) % Seg Neutrophils % 74.3 % Lymphocytes % 14.1 % Monocytes % 8.7 % Eosinophils % 1.6 % Basophils % 0.5 % Neutrophils # 11.0 H (1.6-8.9) K/mcL Lymphocytes # 2.1 (0.6-4.6) K/mcL Monocytes # 1.3 (0.0-1.3) K/mcL Eosinophils # 0.2 (0.0-0.6) K/mcL Basophils # 0.1 (0.0-0.2) K/mcL D-Dimer 1108 H (0-500) ng/mLFEU Sodium 139 (136-145) mEq/L Potassium 3.4 L (3.5-5.1) mEq/L Chloride 100 (98-107) mEq/L Carbon Dioxide 27 (23-29) mEq/L BUN 20 (8-23) mg/dL Creatinine 0.76 (0.60-1.20) mg/dL Est GFR ( Amer) > 60 (> 60) Est GFR (Non-Af Amer) > 60 (> 60) BUN/Creatinine Ratio 26 (6-26) Glucose 131 H (70-105) mg/dL Calculated Osmolality 292 (280-300) Lactic Acid (0.5-2.2) mmol/L Calcium 10.0 (8.6-10.3) mg/dL Troponin I 0.10 H* (< 0.04) ng/mL B-Natriuretic Peptide (Less than 100) pg/mL Urine Color (Yellow) Urine Clarity (Clear) Urine pH (5.0-8.0) pH Units Ur Specific [place] (1.010-1.025) Urine Protein (Neg-Trace) mg/dL Urine Glucose (UA) (Normal) mg/dL Urine Ketones (Negative) mg/dL Urine Blood (Negative) Urine Nitrite (Negative) Urine Bilirubin (Negative) Urine Urobilinogen (Normal) mg/dL Ur Leukocyte Esterase (Negative) Urine Microscopic RBC (0-3) per hpf Urine Microscopic WBC (0-3) per hpf Ur Squamous Epith Cells (None-Few) per lpf Amorphous Sediment (Few) Urine Bacteria (None-Few) per hpf Hyaline Casts (None-Few) per lpf Granular Casts (None Seen) per lpf Urine Mucus (Few) Ur Culture Indicated? (NO) 10/10/18 10/10/18 10/10/18 Range/Units 10:17 10:17 10:55 WBC (4.3-11.1) K/mcL RBC (3.82-4.97) M/mcL Hgb (11.5-15.4) g/dL Hct (35.3-44.9) % MCV (83.0-100.0) fL MCH (28.0-33.3) pg MCHC (31.6-35.5) g/dL RDW (11.5-14.5) % Plt Count (140-400) K/mcL MPV (9.4-12.4) fL Immature Gran % (0-4) % Seg Neutrophils % % Lymphocytes % % Monocytes % % Eosinophils % % Basophils % % Neutrophils # (1.6-8.9) K/mcL Lymphocytes # (0.6-4.6) K/mcL Monocytes # (0.0-1.3) K/mcL Eosinophils # (0.0-0.6) K/mcL Basophils # (0.0-0.2) K/mcL D-Dimer (0-500) ng/mLFEU Sodium (136-145) mEq/L Potassium (3.5-5.1) mEq/L Chloride (98-107) mEq/L Carbon Dioxide (23-29) mEq/L BUN (8-23) mg/dL Creatinine (0.60-1.20) mg/dL Est GFR ( Amer) (> 60) Est GFR (Non-Af Amer) (> 60) BUN/Creatinine Ratio (6-26) Glucose (70-105) mg/dL Calculated Osmolality (280-300) Lactic Acid 1.8 (0.5-2.2) mmol/L Calcium (8.6-10.3) mg/dL Troponin I (< 0.04) ng/mL B-Natriuretic Peptide 1285 H (Less than 100) pg/mL Urine Color Yellow (Yellow) Urine Clarity Clear (Clear) Urine pH 5.5 (5.0-8.0) pH Units Ur Specific [place] 1.020 (1.010-1.025) Urine Protein 100 H (Neg-Trace) mg/dL Urine Glucose (UA) Normal (Normal) mg/dL Urine Ketones Trace H (Negative) mg/dL Urine Blood Trace-intact H (Negative) Urine Nitrite Negative (Negative) Urine Bilirubin Moderate H (Negative) Urine Urobilinogen Normal (Normal) mg/dL Ur Leukocyte Esterase Negative (Negative) Urine Microscopic RBC 3-5 H (0-3) per hpf Urine Microscopic WBC 3-5 H (0-3) per hpf Ur Squamous Epith Cells Moderate H (None-Few) per lpf Amorphous Sediment Few (Few) Urine Bacteria Many H (None-Few) per hpf Hyaline Casts Few (None-Few) per lpf Granular Casts Moderate H (None Seen) per lpf Urine Mucus Many H (Few) Ur Culture Indicated? YES A (NO) - Radiology Data Radiology results reviewed: Yes I reviewed the patient's radiology results. ITS Impressions Chest X-Ray 10/10/18 10:03 IMPRESSION: Mild pulmonary vascular congestion, similar to prior exam 09/13/2018. Minimal patchy airspace opacities to the left mid lung zone, also similar. Findings may be on the basis of asymmetric pulmonary edema or could reflect multifocal infectious/inflammatory process. Small bilateral pleural effusions, improved. D/ / 10/10/2018 10:25:41 Regulo Sawant MD / winsome Interpreting Provider: Regulo Sawant MD Chest CTA 10/10/18 10:41 IMPRESSION: Patient respiratory motion artifact limited exam without definite evidence for pulmonary embolism as above. Small bilateral pleural effusions, right larger than left. Patchy ground-glass opacities to the lungs bilaterally in predominantly peribronchovascular distribution but also with a somewhat mosaic attenuation pattern, worsened from prior exam. Differential considerations would include pulmonary edema, multifocal infectious/inflammatory infiltrates, as well as air trapping potentially relating to small airway disease. Stable mediastinal and hilar lymphadenopathy, nonspecific but possibly reactive. Stable appearance to pulmonary nodules to the left lung as above. These appear unchanged since 07/07/2016 and are felt to reflect benign etiology and without necessity for continued dedicated follow-up. Stable cardiomegaly. Atherosclerosis to include coronary artery disease. D/ / 10/10/2018 12:04:32 Regulo Sawant MD / winsome Interpreting Provider: Regulo Sawant MD - EKG Data EKG attestation: Yes I reviewed and interpreted this EKG. EKG shows normal: Reports: sinus rhythm Rate: Reports: bradycardia [place]/QRS: Reports: RBBB Heart block present: Reports: complete heart block Interpretation: Reports: nonspecific ST-T wave changes, other (3rd degree block present on priors)
[2018-10-10] MEDS ORDERED: Furosemide 40 MG/4 ML VIAL IVP ONE (10:08)
[2018-10-10 10:31] LABS: Basophils # 0.1 K/mcL (0.0-0.2); Basophils % 0.5 %; Eosinophils # 0.2 K/mcL (0.0-0.6); Eosinophils % 1.6 %; Hematocrit 41.4 % (35.3-44.9); Hemoglobin 13.3 g/dL (11.5-15.4); Immature Granulocytes % 0.8 % (0-4); Lymphocytes # 2.1 K/mcL (0.6-4.6); Lymphocytes % 14.1 %; Mean Corpuscular HGB Conc 32.1 g/dL (31.6-35.5); Mean Corpuscular Hemoglobin 27.9 pg (28.0-33.3); Mean Platelet Volume 10.8 fL (9.4-12.4); Monocytes # 1.3 K/mcL (0.0-1.3); Monocytes % 8.7 %; Platelet Count 354 K/mcL (140-400); Red Blood Count 4.76 M/mcL (3.82-4.97); Red Cell Distribution Width 14.6 % (11.5-14.5); Segmented Neutrophils % 74.3 %; White Blood Count 14.8 K/mcL (4.3-11.1)
[2018-10-10] MEDS ORDERED: Azithromycin 500 MG in D5% in Water 250 ML IVPB ONE (10:39)
[2018-10-10] MEDS ORDERED: Isovue-370 500 ML BOTTLE IVP ONE (10:41)
[2018-10-10 10:43] LABS: BUN/Creatinine Ratio 26 (6-26); Blood Urea Nitrogen 20 mg/dL (8-23); Carbon Dioxide 27 mEq/L (23-29); Chloride 100 mEq/L (98-107); Glucose 131 mg/dL (70-105); Osmolality,Calculated 292 (280-300); Potassium 3.4 mEq/L (3.5-5.1); Sodium 139 mEq/L (136-145); eGFR For African Americans > 60 (> 60); eGFR For Non-African Americans > 60 (> 60)
[2018-10-10] MEDS ORDERED: cefTRIAXone 1,000 MG in Water for inj. (sterile) 10 ML IVP ONE (11:00)
[2018-10-10 11:06] LABS: Bilirubin,Urine Moderate (Negative); Blood,Urine Trace-intact (Negative); Clarity,Urine Clear (Clear); Color,Urine Yellow (Yellow); Glucose,Urine (UA) Normal (Normal); Ketones,Urine Trace mg/dL (Negative); Leukocyte Esterase,Urine Negative (Negative); Nitrite,Urine Negative (Negative); PH,Urine 5.5 pH Units (5.0-8.0); Protein,Urine 100 mg/dL (Neg-Trace); Urobilinogen,Urine Normal (Normal)
[2018-10-10 11:14] LABS: Amorphous Sediment,Urine Few (Few); Bacteria,Urine Many per hpf (None-Few); Mucus,Urine Many (Few); Squamous Epithelial Cell,Urine Moderate per lpf (None-Few)
[2018-10-10 11:15] LABS: Granular Casts,Urine Moderate per lpf (None Seen); Hyaline Casts,Urine Few per lpf (None-Few)
[2018-10-10] MEDS ORDERED: *HR* LORazepam 2 MG/ML VIAL IVP ONE (11:23)
[2018-10-10] MEDS ORDERED: Naloxone 0.4 MG/ML INJ IVP PRN ×2 (13:15→13:22)
[2018-10-10] MEDS ORDERED: Nitroglycerin 0.4 MG TAB.SUBL SL PRN (13:22)
[2018-10-10] MEDS: hydrOXYzine pamoate 25 MG CAPSULE PO SCH (15:28)
--- NOTE | 2018-10-10 18:30 | Internal Med History&Physical ---
Date of Encounter: 10/10/18 Time of Encounter: 18:00 Assessment and Plan (1) Congestive heart failure Current visit: No Status: Acute She was given IV Lasix in emergency room. Oral Bumex will be started with Imdur. Qualifiers: Heart failure type: unspecified Heart failure chronicity: acute Qualified Code(s): I50.9 - Heart failure, unspecified (2) Third degree AV block Current visit: Yes Status: Chronic She refuses pacemaker. Continue to monitor. (3) Leukocytosis Current visit: Yes Status: Acute Etiology uncertain. She was given Rocephin and Zithromax in emergency room. Pro-calcitonin level will be done to further evaluate. Qualifiers: Leukocytosis type: unspecified Qualified Code(s): D72.829 - Elevated white blood cell count, unspecified (4) Anxiety and depression Current visit: Yes Status: Acute Continue hydroxyzine. (5) Hypokalemia Current visit: Yes Status: Acute Likely due to Lasix use. Supplemental potassium will be ordered. (6) Elevated troponin Current visit: Yes Status: Acute Suspect troponin leak from demand ischemia. Medication changes as per above. Internal Medicine - H&P: HPI Chief complaint: Dyspnea Admitted From: Emergency Dept Plans for Post Hospital Care: Home History of present illness: Ms. Rivera is a 78 year old female who came to emergency room stating she had dyspnea for approximately 4-5 weeks. She reports seeing her PCP approximately 3 weeks ago and receiving a prescription for Lasix. She states her dyspnea worsened over the past few days despite Lasix use as prescribed. She reports phan ving a cough productive of clear mucus and feeling fevers and chills over the past few days. She was evaluated in emergency room and was felt to have exacerbation of COPD. She was admitted to Medr floor for ongoing care needs. She was hospitalized at [facility] with STEMI 07/08/2018. She refused LHC. She was found to have third-degree AV block which was previously known but again refused pacemaker. She states she is "too old for that". She was prescribed aspirin, Lipitor, lisinopril, Brilinta, and prn Nitrostat and signed out AMA. She was hospitalized at [facility] 08/30/2018 for CHF but signed out AMA the evening of 08/31/2018. She denies hypertension, heart failure, angina, DVT or pulmonary embolus. Past Med Surg Social Fam HX - Past Medical History Medical history: COPD, coronary artery disease, GERD, hyperlipidemia, hy pertension, myocardial infarction, other Additional medical history: hiatal hernia Psychiatric history: no psych history - Past Surgical History Surgical History: cholecystectomy - Social History Smoking Status: Former smoker Smokeless Tobacco Status: No Alcohol use: none Drug use: none Internal Medicine - H&P: Meds Atorvastatin [Lipitor] 40 mg PO HS 08/30/18 [History] Nitroglycerin [Nitrostat] 0.4 mg SL Q5MIN PRN MDD 3 08/30/18 [History] Ticagrelor [Brilinta] 90 mg PO BID 08/30/18 [History] Furosemide [Lasix] 20 mg PO DAILY 10/10/18 [History] amLODIPine [Norvasc] 5 mg PO DAILY 10/10/18 [History] hydrOXYzine HCl [Hydroxyzine HCl] 25 mg PO Q8HR 10/10/18 [History] Allergy/AdvReac Type Severity Reaction Status Date / Time No Known Allergies Allergy Verified 07/08/18 11:30 All Systems PM: A 10-system review of systems was performed and is negative for pertinent findings except as documented above in the HPI. Review of systems: Review of systems from her August 2018 [facility] hospitalization were reviewed and revised as below. Gen.: Her weight has been decreased from 85.4 kg on 07/08/2018 to present weight of 72.121 kg Cardiovascular: As per history of present illness Respiratory: She smoked from age [age] up to 2-1/2 packs per day. She has not had PFTs and does not wear home oxygen. GI: She has had cholecystectomy. She has GERD. She denies disorders of her liver or exocrine pancreas : She has had occasional hematuria but has not had evaluation. She denies other kidney or bladder disorders. Neurologic: She denies large distribution strokes or seizures. Endocrine: She denies diabetes thyroid disease or hyperlipidemia Hematology/oncology: She denies blood disorders cancers or anemia Psychiatric: She has anxiety and depression but denies other mental health issues Musculoskeletal: She has DJD but denies gout or other bone joint or muscle disorders. - Constitutional Vitals: Temp Pulse Resp BP Pulse Ox 97.8 F 40 16 131/59 96 10/10/18 16:02 10/10/18 16:02 10/10/18 16:02 10/10/18 16:02 10/10/18 16:02 Exam: Gen.: She is a well-developed well-nourished female resting comfortably in bed who appears in no severe distress. She is lethargic but awakens and answers questions HEENT: Head is atraumatic and normocephalic. Eyes: EOMI. There is no scleral icterus. Mouth: Mucosa is moist. Neck: Supple and nontender. There is no thyromegaly or adenopathy noted. Heart: Regular and bradycardic Lungs: She has few rhonchi in the posterior lung sue bilaterally more on the right than the left. No respiratory crackles are heard. Abdomen: She has a well-healed right upper quadrant oblique scar. Abdomen is soft and nontender to palpation. Extremities: She has 1-2+ edema of the dorsum the feet and lower legs bilaterally. Dorsalis pedis and posterior tibial pulses are nonpalpable. Neurologic: Mental status: She is able to answer questions appropriately. Her speech is difficult to understand at times. Cranial nerves: Smile is symmetric. Forehead wrinkles bilaterally. Tongue protrudes midline. EOMI. Motor: There is no pronator drift. Cerebellar: Finger to nose intact bilaterally. Skin: Warm and dry. She has an erythematous nonscaly well demarcated area on her forehead approximately 5 cm diameter she reports has been told was psoriasis. Internal Med - H&P Results - Labs CBC & Chem 7: 10/10/18 10:17 10/10/18 10:17 Labs: Short CBC 10/10/18 Range/Units 10:17 WBC 14.8 H (4.3-11.1) K/mcL Hgb 13.3 (11.5-15.4) g/dL Hct 41.4 (35.3-44.9) % Plt Count 354 (140-400) K/mcL Neutrophils # 11.0 H (1.6-8.9) K/mcL BMP 10/10/18 10:17 Sodium 139 Potassium 3.4 L Chloride 100 Carbon Dioxide 27 BUN 20 Creatinine 0.76 Glucose 131 H Calcium 10.0 Cardiac Enzymes 10/10/18 Range/Units 10:17 Troponin I 0.10 H* (< 0.04) ng/mL Urine 10/10/18 Range/Units 10:55 Urine Color Yellow (Yellow) Urine Clarity Clear (Clear) Urine pH 5.5 (5.0-8.0) pH Units Ur Specific [place] 1.020 (1.010-1.025) Urine Protein 100 H (Neg-Trace) mg/dL Urine Glucose (UA) Normal (Normal) mg/dL - Impressions ITS Impressions Chest X-Ray 10/10/18 10:03 IMPRESSION: Mild pulmonary vascular congestion, similar to prior exam 09/13/2018. Minimal patchy airspace opacities to the left mid lung zone, also similar. Findings may be on the basis of asymmetric pulmonary edema or could reflect multifocal infectious/inflammatory process. Small bilateral pleural effusions, improved. D/ / 10/10/2018 10:25:41 Regulo Sawant MD / [facility] Interpreting Provider: Regulo Sawant MD Chest CTA 10/10/18 10:41 IMPRESSION: Patient respiratory motion artifact limited exam without definite evidence for pulmonary embolism as above. Small bilateral pleural effusions, right larger than left. Patchy ground-glass opacities to the lungs bilaterally in predominantly peribronchovascular distribution but also with a somewhat mosaic attenuation pattern, worsened from prior exam. Differential considerations would include pulmonary edema, multifocal infectious/inflammatory infiltrates, as well as air trapping potentially relating to small airway disease. Stable mediastinal and hilar lymphadenopathy, nonspecific but possibly reactive. Stable appearance to pulmonary nodules to the left lung as above. These appear unchanged since 07/07/2016 and are felt to reflect benign etiology and without necessity for continued dedicated follow-up. Stable cardiomegaly. Atherosclerosis to include coronary artery disease. D/ / 10/10/2018 12:04:32 Regulo Sawant MD / [facility] Interpreting Provider: Regulo Sawant MD - VTE Reasons for not Prescribing Prophylaxis: Treatment not Indicated - Low risk for VTE
[2018-10-10] MEDS: Isosorbide MONOnitrate (24 HR) 30 MG TAB.ER.24H PO SCH (19:27)
[2018-10-10] MEDS: Bumetanide 1 MG TABLET PO SCH (19:27)
[2018-10-10] MEDS: *HR* Ticagrelor 90 MG TABLET PO SCH (20:54)
--- NOTE | 2018-10-10 22:04 | Electrocardiograph Report ---
[address] [address] Test Date: 2018-10-10 Pat Name: María Rivera Department: EDP-14 Room: [facility] Gender: F [employer] Manager: : 1940 Requested By: Daly Arrieta Order Number: [id number] Reading MD: Tomasa Jones Measurements Intervals [place] Rate: 49 P: 0 FL: 59 QRS: -94 QRSD: 156 T: 88 QT: 566 QTc: 511 Interpretive Statements Sinus tachycardia with 3rd degree AVB Right bundle branch block Anteroseptal infarct, age indeterminate Electronically Signed On 10-10-2018 22:02:58 EDT by Tomasa Jones
[2018-10-11] MEDS: hydrOXYzine pamoate 25 MG CAPSULE PO SCH ×2 (00:41→07:46)
[2018-10-11 05:56] LABS: Basophils % 0.3 %; Eosinophils # 0.2 K/mcL (0.0-0.6); Eosinophils % 1.6 %; Hematocrit 37.8 % (35.3-44.9); Hemoglobin 12.2 g/dL (11.5-15.4); Immature Granulocytes % 0.4 % (0-4); Lymphocytes # 1.5 K/mcL (0.6-4.6); Lymphocytes % 10.1 %; Mean Corpuscular HGB Conc 32.3 g/dL (31.6-35.5); Mean Corpuscular Hemoglobin 28.5 pg (28.0-33.3); Mean Corpuscular Volume 88.3 fL (83.0-100.0); Mean Platelet Volume 10.7 fL (9.4-12.4); Monocytes # 1.7 K/mcL (0.0-1.3); Monocytes % 11.2 %; Platelet Count 314 K/mcL (140-400); Red Blood Count 4.28 M/mcL (3.82-4.97); Red Cell Distribution Width 14.6 % (11.5-14.5); Segmented Neutrophils % 76.4 %; White Blood Count 14.7 K/mcL (4.3-11.1)
[2018-10-11 06:17] LABS: Neutrophils # 11.2 K/mcL (1.6-8.9)
[2018-10-11 06:22] LABS: BUN/Creatinine Ratio 27 (6-26); Blood Urea Nitrogen 21 mg/dL (8-23); Calcium 9.4 mg/dL (8.6-10.3); Carbon Dioxide 31 mEq/L (23-29); Chloride 99 mEq/L (98-107); Glucose 91 mg/dL (70-105); Osmolality,Calculated 293 (280-300); Potassium 3.6 mEq/L (3.5-5.1); Sodium 140 mEq/L (136-145); eGFR For African Americans > 60 (> 60); eGFR For Non-African Americans > 60 (> 60)
[2018-10-11] MEDS: Bumetanide 1 MG TABLET PO SCH (07:46)
[2018-10-11] MEDS: *HR* Ticagrelor 90 MG TABLET PO SCH ×2 (07:46→20:16)
[2018-10-11] MEDS: Isosorbide MONOnitrate (24 HR) 30 MG TAB.ER.24H PO SCH (07:46)
[2018-10-11] MEDS ORDERED: amLODIPine 5 MG TABLET PO SCH (09:00)
--- NOTE | 2018-10-11 10:00 | Internal Med Progress Note ---
Date of Encounter: 10/11/18 Time of Encounter: 09:52 - Assessment and plan (1) Congestive heart failure Current Visit: No Status: Acute Assessment and plan: October 11. Continue Bumex and Imdur. Qualifiers: Heart failure type: unspecified Heart failure chronicity: acute Qualified Code(s): I50.9 - Heart failure, unspecified (2) Third degree AV block Current Visit: Yes Status: Chronic Assessment and plan: October 11. She refuses pacemaker. (3) Leukocytosis Current Visit: Yes Status: Acute Assessment and plan: October 11. Minimally changed at 14.7 with no significant left shift on differential. Pro-calcitonin was WNL at 0.07. She remains afebrile. Recheck labs in a.m. Qualifiers: Leukocytosis type: unspecified Qualified Code(s): D72.829 - Elevated white blood cell count, unspecified (4) Anxiety and depression Current Visit: Yes Status: Acute Assessment and plan: October 11. Continue hydroxyzine. (5) Hypokalemia Current Visit: Yes Status: Acute Assessment and plan: October 11. Potassium level improved to 3.6. Continue supplemental potassium. (6) Elevated troponin Current Visit: Yes Status: Acute Assessment and plan: October 11. Recheck in a.m. - Subjective Interval history: October 11. She has no new complaints. - Constitutional Vitals: Temp Pulse Resp BP Pulse Ox 98.0 F 42 16 130/59 95 10/11/18 06:21 10/11/18 06:21 10/11/18 06:21 10/11/18 06:21 10/11/18 06:21 Exam: She is sitting in a chair at bedside resting comfortably. Her affect is overall cheerful. She is more alert and talking. Extremity edema has lessened. I reviewed her medications and lab results. Internal Medicine: Result - Labs CBC & Chem 7: 10/11/18 05:45 10/11/18 05:45 Labs: Short CBC 10/10/18 10/11/18 Range/Units 10:17 05:45 WBC 14.8 H 14.7 H (4.3-11.1) K/mcL Hgb 13.3 12.2 (11.5-15.4) g/dL Hct 41.4 37.8 (35.3-44.9) % Plt Count 354 314 (140-400) K/mcL Neutrophils # 11.0 H 11.2 H (1.6-8.9) K/mcL BMP 10/10/18 10/11/18 10:17 05:45 Sodium 139 140 Potassium 3.4 L 3.6 Chloride 100 99 Carbon Dioxide 27 31 H BUN 20 21 Creatinine 0.76 0.78 Glucose 131 H 91 Calcium 10.0 9.4 Cardiac Enzymes 10/10/18 Range/Units 10:17 Troponin I 0.10 H* (< 0.04) ng/mL Urine 10/10/18 Range/Units 10:55 Urine Color Yellow (Yellow) Urine Clarity Clear (Clear) Urine pH 5.5 (5.0-8.0) pH Units Ur Specific [place] 1.020 (1.010-1.025) Urine Protein 100 H (Neg-Trace) mg/dL Urine Glucose (UA) Normal (Normal) mg/dL - ABG Interpretation ABG results: PT/INR, D-dimer 1108 ng/mLFEU (0-500) H 10/10/18 10:17 - Impressions Impressions Chest X-Ray 10/10/18 10:03 IMPRESSION: Mild pulmonary vascular congestion, similar to prior exam 09/13/2018. Minimal patchy airspace opacities to the left mid lung zone, also similar. Findings may be on the basis of asymmetric pulmonary edema or could reflect multifocal infectious/inflammatory process. Small bilateral pleural effusions, improved. D/ / 10/10/2018 10:25:41 Regulo Sawant MD / [facility] Interpreting Provider: Regulo Sawant MD Chest CTA 10/10/18 10:41 IMPRESSION: Patient respiratory motion artifact limited exam without definite evidence for pulmonary embolism as above. Small bilateral pleural effusions, right larger than left. Patchy ground-glass opacities to the lungs bilaterally in predominantly peribronchovascular distribution but also with a somewhat mosaic attenuation pattern, worsened from prior exam. Differential considerations would include pulmonary edema, multifocal infectious/inflammatory infiltrates, as well as air trapping potentially relating to small airway disease. Stable mediastinal and hilar lymphadenopathy, nonspecific but possibly reactive. Stable appearance to pulmonary nodules to the left lung as above. These appear unchanged since 07/07/2016 and are felt to reflect benign etiology and without necessity for continued dedicated follow-up. Stable cardiomegaly. Atherosclerosis to include coronary artery disease. D/ / 10/10/2018 12:04:32 Regulo Sawant MD / [facility] Interpreting Provider: Regulo Sawant MD - VTE Reasons for not Prescribing Prophylaxis: Treatment not Indicated - Low risk for VTE Consult Discharge Plan - Plan Referrals: Rachelle Nunez CNP [Primary Care Provider] - 1 week
[2018-10-11] MEDS: Potassium Chloride Elixir 20 MEQ/15 ML UDC PO SCH (11:44)
[2018-10-11] MEDS: ALPRAZolam 0.5 MG TABLET PO PRN (15:09)
[2018-10-12] MEDS: *HR* Enoxaparin 40 MG/0.4 ML SYRINGE SQ SCH (05:24)
[2018-10-12 05:50] LABS: Basophils # 0.1 K/mcL (0.0-0.2); Basophils % 0.6 %; Eosinophils # 0.3 K/mcL (0.0-0.6); Eosinophils % 2.5 %; Hematocrit 38.7 % (35.3-44.9); Hemoglobin 12.5 g/dL (11.5-15.4); Immature Granulocytes % 0.4 % (0-4); Lymphocytes # 1.6 K/mcL (0.6-4.6); Lymphocytes % 11.5 %; Mean Corpuscular HGB Conc 32.3 g/dL (31.6-35.5); Mean Corpuscular Hemoglobin 28.7 pg (28.0-33.3); Mean Corpuscular Volume 88.8 fL (83.0-100.0); Mean Platelet Volume 10.8 fL (9.4-12.4); Monocytes # 1.3 K/mcL (0.0-1.3); Monocytes % 9.5 %; Neutrophils # 10.3 K/mcL (1.6-8.9); Platelet Count 315 K/mcL (140-400); Red Blood Count 4.36 M/mcL (3.82-4.97); Red Cell Distribution Width 14.7 % (11.5-14.5); Segmented Neutrophils % 75.5 %; White Blood Count 13.7 K/mcL (4.3-11.1)
[2018-10-12 06:14] LABS: BUN/Creatinine Ratio 28 (6-26); Blood Urea Nitrogen 24 mg/dL (8-23); Calcium 9.6 mg/dL (8.6-10.3); Carbon Dioxide 32 mEq/L (23-29); Chloride 99 mEq/L (98-107); Glucose 111 mg/dL (70-105); Osmolality,Calculated 293 (280-300); Potassium 3.9 mEq/L (3.5-5.1); Sodium 139 mEq/L (136-145); eGFR For African Americans > 60 (> 60); eGFR For Non-African Americans > 60 (> 60)
[2018-10-12 07:05] LABS: Troponin I 0.12 ng/mL (< 0.04)
[2018-10-12] MEDS ORDERED: Potassium Chloride Elixir 20 MEQ/15 ML UDC PO SCH (09:00)
--- NOTE | 2018-10-12 09:34 | Internal Med Progress Note ---
Date of Encounter: 10/12/18 Time of Encounter: 09:27 - Assessment and plan (1) Congestive heart failure Current Visit: No Status: Acute Assessment and plan: October 11. Continue Bumex and Imdur. October 12. BN peptide slightly decreased to 1206. Continue Bumex. Increase Imdur to 60 mg daily. Qualifiers: Heart failure type: unspecified Heart failure chronicity: acute Qualified Code(s): I50.9 - Heart failure, unspecified (2) Third degree AV block Current Visit: Yes Status: Chronic Assessment and plan: October 11. She refuses pacemaker. (3) Leukocytosis Current Visit: Yes Status: Acute Assessment and plan: October 11. Minimally changed at 14.7 with no significant left shift on differential. Pro-calcitonin was WNL at 0.07. She remains afebrile. Recheck labs in a.m. October 12. WBC slightly lower at 13.7. Repeat pro-calcitonin pending. Continue to monitor. Qualifiers: Leukocytosis type: unspecified Qualified Code(s): D72.829 - Elevated white blood cell count, unspecified (4) Anxiety and depression Current Visit: Yes Status: Acute Assessment and plan: October 11. Continue hydroxyzine. October 12. Now on prn Xanax and off hydroxyzine. (5) Hypokalemia Current Visit: Yes Status: Acute Assessment and plan: October 11. Potassium level improved to 3.6. Continue supplemental potassium. October 12. Potassium stable at 3.9. Continue present Rx. (6) Elevated troponin Current Visit: Yes Status: Acute Assessment and plan: October 11. Recheck in a.m. October 12. Minimally higher at 0.12. Increase Imdur and continue to monitor. (7) Weakness generalized Current Visit: No Status: Acute Assessment and plan: October 12. She does not feel she can return home unless she is stronger. PT and OT evaluations/interventions will be ordered. - Subjective Interval history: October 11. She has no new complaints. October 12. She states she feels weaker. She denies dyspnea or pain. - Constitutional Vitals: Temp Pulse Resp BP Pulse Ox 97.4 F L 42 16 129/58 97 10/12/18 06:30 10/12/18 06:30 10/12/18 06:30 10/12/18 06:30 10/12/18 06:30 Exam: She is resting comfortably in bed and appears in no acute distress. She does not appear dyspneic. Extremities show 0 to trace edema of the lower legs bilaterally. I reviewed her medications and lab results. Internal Medicine: Result - Labs CBC & Chem 7: 10/12/18 05:05 10/12/18 05:05 Labs: Short CBC 10/12/18 Range/Units 05:05 WBC 13.7 H (4.3-11.1) K/mcL Hgb 12.5 (11.5-15.4) g/dL Hct 38.7 (35.3-44.9) % Plt Count 315 (140-400) K/mcL Neutrophils # 10.3 H (1.6-8.9) K/mcL BMP 10/12/18 05:05 Sodium 139 Potassium 3.9 Chloride 99 Carbon Dioxide 32 H BUN 24 H Creatinine 0.86 Glucose 111 H Calcium 9.6 Cardiac Enzymes 10/12/18 Range/Units 05:05 Troponin I 0.12 H* (< 0.04) ng/mL - ABG Interpretation ABG results: PT/INR, D-dimer 1108 ng/mLFEU (0-500) H 10/10/18 10:17 - VTE Reasons for not Prescribing Prophylaxis: Treatment not Indicated - Low risk for VTE Consult Discharge Plan - Plan Referrals: Rachelle Nunez CNP [Primary Care Provider] - 1 week
[2018-10-12] MEDS: Potassium Chloride Elixir 20 MEQ/15 ML UDC PO SCH (10:17)
[2018-10-12] MEDS: *HR* Ticagrelor 90 MG TABLET PO SCH ×2 (10:18→20:10)
[2018-10-12] MEDS: Isosorbide MONOnitrate (24 HR) 30 MG TAB.ER.24H PO SCH ×2 (10:18→11:48)
[2018-10-12] MEDS: Bumetanide 1 MG TABLET PO SCH (10:18)
[2018-10-12] MEDS: ALPRAZolam 0.5 MG TABLET PO PRN (18:00)
[2018-10-13] MEDS: *HR* Enoxaparin 40 MG/0.4 ML SYRINGE SQ SCH (06:37)
[2018-10-13] MEDS: Isosorbide MONOnitrate (24 HR) 30 MG TAB.ER.24H PO SCH (07:48)
[2018-10-13] MEDS: Bumetanide 1 MG TABLET PO SCH (07:48)
[2018-10-13] MEDS: Potassium Chloride Elixir 20 MEQ/15 ML UDC PO SCH (07:48)
[2018-10-13] MEDS: *HR* Ticagrelor 90 MG TABLET PO SCH ×2 (07:48→20:22)
[2018-10-13] MEDS: ALPRAZolam 0.5 MG TABLET PO PRN ×2 (07:48→20:22)
--- NOTE | 2018-10-13 10:16 | Internal Med Progress Note ---
Date of Encounter: 10/13/18 Time of Encounter: 10:06 - Assessment and plan (1) Congestive heart failure Current Visit: No Status: Acute Assessment and plan: October 11. Continue Bumex and Imdur. October 12. BN peptide slightly decreased to 1206. Continue Bumex. Increase Imdur to 60 mg daily. October 13. Recheck labs in a.m. Qualifiers: Heart failure type: unspecified Heart failure chronicity: acute Qualified Code(s): I50.9 - Heart failure, unspecified (2) Third degree AV block Current Visit: Yes Status: Chronic Assessment and plan: October 11. She refuses pacemaker. (3) Leukocytosis Current Visit: Yes Status: Acute Assessment and plan: October 11. Minimally changed at 14.7 with no significant left shift on differential. Pro-calcitonin was WNL at 0.07. She remains afebrile. Recheck labs in a.m. October 12. WBC slightly lower at 13.7. Repeat pro-calcitonin pending. Continue to monitor. October 13. Recheck labs in a.m. Qualifiers: Leukocytosis type: unspecified Qualified Code(s): D72.829 - Elevated white blood cell count, unspecified (4) Anxiety and depression Current Visit: Yes Status: Acute Assessment and plan: October 11. Continue hydroxyzine. October 12. Now on prn Xanax and off hydroxyzine. (5) Hypokalemia Current Visit: Yes Status: Acute Assessment and plan: October 11. Potassium level improved to 3.6. Continue supplemental potassium. October 12. Potassium stable at 3.9. Continue present Rx. October 13. Recheck labs in a.m. (6) Elevated troponin Current Visit: Yes Status: Acute Assessment and plan: October 11. Recheck in a.m. October 12. Minimally higher at 0.12. Increase Imdur and continue to monitor. October 13. Recheck labs in a.m. (7) Weakness generalized Current Visit: No Status: Acute Assessment and plan: October 12. She does not feel she can return home unless she is stronger. PT and OT evaluations/interventions will be ordered. October 13. Continue therapy intervention. Anticipate discharge to swing bed tomorrow. - Subjective Interval history: October 11. She has no new complaints. October 12. She states she feels weaker. She denies dyspnea or pain. October 13. She has no new complaints. She feels slightly dyspneic. She and her sons discussed her overall condition yesterday with the social welfare research worker and patient agreed to continue therapy in swing bed after acute-care stay. - Constitutional Vitals: Temp Pulse Resp BP Pulse Ox 97.5 F L 37 14 123/61 97 10/13/18 04:33 10/13/18 04:33 10/13/18 04:33 10/13/18 04:33 10/13/18 04:33 Exam: She is sitting in a chair at bedside resting comfortably. Heart is bradycardic. Lungs show no wheezes or crackles. She is wearing oxygen by nasal cannula. Extremities show trace to 1+ edema bilaterally of her lower legs. I reviewed her medications and past lab results. Internal Medicine: Result - Labs CBC & Chem 7: 10/12/18 05:05 10/12/18 05:05 - ABG Interpretation ABG results: PT/INR, D-dimer 1108 ng/mLFEU (0-500) H 10/10/18 10:17 - VTE Reasons for not Prescribing Prophylaxis: Treatment not Indicated - Low risk for VTE Consult Discharge Plan - Plan Referrals: Rachelle Nunez, MOISÉS [Primary Care Provider] - 1 week
[2018-10-13] MEDS: Albuterol 2.5 MG/3 ML NEBULIZER IH PRN ×2 (10:18→22:03)
[2018-10-13] MEDS: Budesonide/Formoterol 160/4.5 1 PUFF INH IH SCH ×2 (11:31→22:03)
[2018-10-14 06:21] LABS: Basophils % 0.4 %; Eosinophils # 0.2 K/mcL (0.0-0.6); Eosinophils % 2.2 %; Hematocrit 36.6 % (35.3-44.9); Hemoglobin 11.6 g/dL (11.5-15.4); Immature Granulocytes % 0.4 % (0-4); Lymphocytes # 0.9 K/mcL (0.6-4.6); Lymphocytes % 8.3 %; Mean Corpuscular HGB Conc 31.7 g/dL (31.6-35.5); Mean Corpuscular Hemoglobin 28.6 pg (28.0-33.3); Mean Corpuscular Volume 90.1 fL (83.0-100.0); Mean Platelet Volume 10.8 fL (9.4-12.4); Monocytes # 1.2 K/mcL (0.0-1.3); Monocytes % 11.5 %; Neutrophils # 7.9 K/mcL (1.6-8.9); Platelet Count 262 K/mcL (140-400); Red Blood Count 4.06 M/mcL (3.82-4.97); Red Cell Distribution Width 14.6 % (11.5-14.5); Segmented Neutrophils % 77.2 %; White Blood Count 10.3 K/mcL (4.3-11.1)
[2018-10-14 06:25] VITALS: BP 118/60
[2018-10-14] MEDS: *HR* Enoxaparin 40 MG/0.4 ML SYRINGE SQ SCH (06:39)
[2018-10-14 08:03] LABS: BUN/Creatinine Ratio 33 (6-26); Blood Urea Nitrogen 28 mg/dL (8-23); Calcium 9.5 mg/dL (8.6-10.3); Carbon Dioxide 31 mEq/L (23-29); Chloride 99 mEq/L (98-107); Glucose 112 mg/dL (70-105); Osmolality,Calculated 294 (280-300); Potassium 4.1 mEq/L (3.5-5.1); Sodium 139 mEq/L (136-145); eGFR For African Americans > 60 (> 60); eGFR For Non-African Americans > 60 (> 60)
[2018-10-14 08:37] LABS: Troponin I 0.08 ng/mL (< 0.04)
[2018-10-14] MEDS: Isosorbide MONOnitrate (24 HR) 30 MG TAB.ER.24H PO SCH (08:43)
[2018-10-14] MEDS: Potassium Chloride Elixir 20 MEQ/15 ML UDC PO SCH (08:43)
[2018-10-14] MEDS: Bumetanide 1 MG TABLET PO SCH (08:44)
[2018-10-14] MEDS: *HR* Ticagrelor 90 MG TABLET PO SCH (08:44)
[2018-10-14] MEDS: Albuterol 2.5 MG/3 ML NEBULIZER IH PRN (09:40)
[2018-10-14] MEDS: Budesonide/Formoterol 160/4.5 1 PUFF INH IH SCH (09:40)
--- NOTE | 2018-10-14 09:41 | Discharge Summary ---
Orders not resulted at time of discharge: Pending orders 10/10/18 11:02 Culture,Blood [BC] Stat Date of Encounter: 10/14/18 Time of Encounter: 09:33 - Discharge Diagnosis (1) Congestive heart failure Priority: Primary Status: Acute Qualifiers: Heart failure type: unspecified Heart failure chronicity: acute Qualified Code(s): I50.9 - Heart failure, unspecified (2) Third degree AV block Priority: Secondary Status: Chronic (3) Leukocytosis Priority: Secondary Status: Resolved Qualifiers: Leukocytosis type: unspecified Qualified Code(s): D72.829 - Elevated white blood cell count, unspecified (4) Anxiety and depression Priority: Secondary Status: Chronic (5) Hypokalemia Priority: Secondary Status: Acute (6) Elevated troponin Priority: Secondary Status: Acute (7) Weakness generalized Priority: Secondary Status: Chronic Hospital course: Ms. Rivera is a 78 year old female who came to emergency room stating she had dyspnea for approximately 4-5 weeks. She reports seeing her PCP approximately 3 weeks ago and receiving a prescription for Lasix. She states her dyspnea worsened over the past few days despite Lasix use as prescribed. She reports having a cough productive of clear mucus and feeling fevers and chills over the past few days. She was evaluated in emergency room and was felt to have exacerbation of COPD. She was admitted to [facility] for ongoing care needs. Initial orders were written by the emergency room physician. I saw her on October 10 and performed the history and physical. She was given IV Lasix emergency room. She was transitioned to oral Bumex. Imdur was added. She had slight clinical improvement dyspnea. She will have increased dose of Imdur and Bumex and transition to swing bed. She was given Rocephin and Zithromax in emergency room. Pro-calcitonin level returned normal October 10 with repeat level normal on October 12. Leukocytosis resolved by day of discharge to swing bed. Troponin decreased to 0.08 by day of discharge to swing bed. She had physical therapy and occupational therapy evaluations done. She made some progress but it was felt she would benefit from ongoing therapy intervention. On October 14 she was discharged to swing bed, - Time Spent with Patient Total time spent providing and/or coordinating discharge services: - Discharge Medications Prescriptions: New Bumetanide [Bumex] 1.5 mg PO DAILY tablet Isosorbide MONOnitrate (24 HR) [Imdur] 120 mg PO DAILY 30 Days tab.er.24h Potassium Chloride Elixir [Potassium Chloride] 20 meq PO DAILY udc Albuterol Neb [Proventil Neb] 2.5 mg IH Q2H PRN inhsol PRN Reason: Shortness Of Breath/Wheezing ALPRAZolam [Xanax 0.5 MG Tablet] 0.5 mg PO Q6H PRN tablet PRN Reason: Anxiety Continued Atorvastatin [Lipitor] 40 mg PO HS Ticagrelor [Brilinta] 90 mg PO BID Nitroglycerin [Nitrostat] 0.4 mg SL Q5MIN PRN MDD 3 PRN Reason: Chest Pain Discontinued amLODIPine [Norvasc] 5 mg PO DAILY Furosemide [Lasix] 20 mg PO DAILY hydrOXYzine HCl [Hydroxyzine HCl] 25 mg PO Q8HR Home Medications: Atorvastatin [Lipitor] 40 mg PO HS 08/30/18 [History] Nitroglycerin [Nitrostat] 0.4 mg SL Q5MIN PRN MDD 3 08/30/18 [History] Ticagrelor [Brilinta] 90 mg PO BID 08/30/18 [History] ALPRAZolam [Xanax 0.5 MG Tablet] 0.5 mg PO Q6H PRN tablet 10/14/18 [Rx] Albuterol Neb [Proventil Neb] 2.5 mg IH Q2H PRN inhsol 10/14/18 [Rx] Bumetanide [Bumex] 1.5 mg PO DAILY tablet 10/14/18 [Rx] Isosorbide MONOnitrate (24 HR) [Imdur] 120 mg PO DAILY 30 Days tab.er.24h 10/14/18 [Rx] Potassium Chloride Elixir [Potassium Chloride] 20 meq PO DAILY udc 10/14/18 [Rx] Allergies/Adverse Reactions: Allergy/AdvReac Type Severity Reaction Status Date / Time No Known Allergies Allergy Verified 07/08/18 11:30 Date of admission: 10/11/18 10:03 Primary care physician: Rachelle Nunez Consults: 10/12/18 09:37 Consult to Occupational Therapy [CONS] Routine Comment: Evaluate, develop and implement POC Reason for Consult: Weakness Does patient have active BEDREST order?: No Is patient medically & hemodynamically stable?: Yes Patient assessed for mobility or mobilized this visit?: Yes Consult to Physical Therapy [CONS] Routine Comment: Evaluate, develop and implement POC Reason for Consult: Weakness Does patient have active BEDREST order?: No Is patient medically & hemodynamically stable?: Yes Patient assessed for mobility or mobilized this visit?: Yes - Constitutional Vitals: Temp Pulse Resp BP Pulse Ox 97.9 F 38 24 118/60 98 10/14/18 06:20 10/14/18 06:20 10/14/18 06:20 10/14/18 06:20 10/14/18 06:20 - Patient Status Disposition: Transfer Hospital Swing Bed Condition: Fair - Discharge Instructions Follow Up With: Rachelle Nunez CNP [Primary Care Provider] - 1 week - Diet and Activity Activity: as per physical therapy Diet: low fat, low cholesterol, low salt diet - VTE Reasons for not Prescribing Prophylaxis: Treatment not Indicated - Low risk for VTE
== END 2018-10-14 12:07 | disposition other institution (70) | DRG 292 ==
LOC: EMEROOPIK 09:54 → INPPIK 09:54
PROVIDERS: ADMIT Internal Medicine; ATTEND Internal Medicine

== ENCOUNTER 2018-10-14 11:28 | Inpatient (IN) ==
[2018-10-14] MEDS ORDERED: ALPRAZolam 0.5 MG TABLET PO PRN (11:44)
[2018-10-14] MEDS ORDERED: Nitroglycerin 0.4 MG TAB.SUBL SL PRN (11:44)
[2018-10-14] MEDS ORDERED: Albuterol 2.5 MG/3 ML NEBULIZER IH PRN (11:49)
[2018-10-14 12:50] VITALS: BP 98/50
[2018-10-14] MEDS ORDERED: *HR* Ticagrelor 90 MG TABLET PO SCH (21:00)
[2018-10-14] MEDS ORDERED: Budesonide/Formoterol 160/4.5 1 PUFF INH IH SCH (22:00)
[2018-10-15] MEDS ORDERED: Isosorbide MONOnitrate (24 HR) 60 MG TAB.ER.24H PO SCH (09:00)
[2018-10-15] MEDS ORDERED: Potassium Chloride Elixir 20 MEQ/15 ML UDC PO SCH (09:00)
[2018-10-15] MEDS ORDERED: Bumetanide 1 MG TABLET PO SCH (09:00)
--- NOTE | 2018-10-19 17:24 | Internal Med Progress Note ---
Date of Encounter: 10/19/18 Time of Encounter: 17:20 - Subjective Interval history: Patient was discharged 10/14/2018 from acute care to swing bed. A few hours after transition to swing bed 10/14/2018 she left AMA. - Constitutional Vitals: Pulse Resp BP Pulse Ox 44 18 98/50 98 10/14/18 12:47 10/14/18 15:58 10/14/18 12:47 10/14/18 15:58 Consult Discharge Plan - Plan Referrals: NONE,PCP [Primary Care Provider] - 1 week
== END 2018-10-14 19:50 | disposition left against medical advice (07) | DRG 292 ==
LOC: INPPIK 12:23
PROVIDERS: ADMIT Internal Medicine; ATTEND Internal Medicine

== ENCOUNTER 2018-10-17 10:32 | Observation (INO) ==
[2018-10-17] MEDS ORDERED: Furosemide 40 MG/4 ML VIAL IVP ONE (10:36)
[2018-10-17] MEDS ORDERED: Ipratropium/Albuterol Neb 3 ML IH ONE (10:36)
--- NOTE | 2018-10-17 10:39 | Emergency Department Note ---
Disposition Clinical Impression: Congestive heart failure Qualifiers: Heart failure type: unspecified Heart failure chronicity: acute on chronic Qualified Code(s): I50.9 - Heart failure, unspecified Disposition: Admitted As Inpatient Condition: Fair Time of Disposition: 12:00 SOB HPI - General Chief Complaint: ED Shortness of Breath/Dyspnea Stated Complaint: shortness of breath Time Seen by Provider: 10/17/18 10:36 Source: patient, family Mode of arrival: private vehicle Limitations: physical limitation Nursing Notes Reviewed: Yes Vital Signs Reviewed: Yes - History of Present Illness Patient presents with history of increased shortness of breath and a smothering feeling. She states she has had poor sleep and inability to lay flat. She had chills but no fever. Chest chest pain or palpitations. She has had some c oughing and gagging but no sputum production. She reports orthopnea and paroxysmal nocturnal dyspnea as well as increased lower extremity edema. She indicates that she was admitted to the hospital for COPD or pneumonia with discharge on Wednesday at her insistence. She did have an MD 3 months ago and had refused other intervention. She has a signed DNR CC. On leaving the hospital she did get her medications but has only taken them on Wednesday. It increased shortness of breath she is been brought back in by family for evaluation. She arrives with oxygenation in the mid 80s and overt dyspnea. Pt Subjective Complaint: shortness of breath Onset (ago): day(s) Severity: moderate, severe Consistency/Duration: gradually worsening Improves with: upright position Worsens with: lying flat, exertion, coughing Known history of: COPD, congestive heart failure Associated symptoms: Reports: cough, orthopnea. Denies: chest pain, pain with inspiration, fever, wheezing, sputum production, lower extremity pain, polyuria, polydipsia, parasthesias, palpitations, hemoptysis, diaphoresis, nausea/vomitin g, syncope, abdominal pain, rash Treatment prior to arrival: none Cough present: Yes Cough Description: Voluntary, Hacking Cough Frequency: Intermittent Sputum production: No - Related Data Home oxygen amount: none Home Medications Medication Instructions Recorded Confirmed Atorvastatin [Lipitor] 40 mg PO HS 08/30/18 10/10/18 Nitroglycerin [Nitrostat] 0.4 mg SL Q5MIN PRN MDD 3 08/30/18 10/10/18 Ticagrelor [Brilinta] 90 mg PO BID 08/30/18 10/10/18 Previous Rx's Medication Instructions Recorded ALPRAZolam [Xanax 0.5 MG Tablet] 0.5 mg PO Q6H PRN tablet 10/14/18 Albuterol Neb [Proventil Neb] 2.5 mg IH Q2H PRN inhsol 10/14/18 Bumetanide [Bumex] 1.5 mg PO DAILY tablet 10/14/18 Isosorbide MONOnitrate (24 HR) 120 mg PO DAILY 30 Days tab.er.24h 10/14/18 [Imdur] Potassium Chloride Elixir 20 meq PO DAILY udc 10/14/18 [Potassium Chloride] Allergies Allergy/AdvReac Type Severity Reaction Status Date / Time No Known Allergies Allergy Verified 07/08/18 11:30 All systems ED: reviewed and negative except as stated. Past Medical History - Past Medical History Attestation: Yes The following information was validated with the patient. Source: patient, old records reviewed, obtained from family, nursing notes revi ewed Medical history: Reports: COPD, coronary artery disease, GERD, hyperlipidemia, hypertension, myocardial infarction, other Surgical history: Reports: cholecystectomy Psychiatric history: Reports: no psych history - Social History Smoking Status: Former smoker Smokeless Tobacco Status: No Alcohol use: Reports: none Drug use: Reports: none Physical Exam - General Limitations: physical limitation General appearance: alert, anxious, in distress - Head Head exam: atraumatic, normocephalic, normal inspection - Eye Eye exam: Present: normal appearance, PERRL, EOMI - ENT ENT exam: normal exam, normal oropharynx, mucous membranes moist - Neck Neck exam: Present: normal inspection, full ROM, trachea midline - Chest Chest inspection: Present: normal inspection, symmetric chest wall rise - Respiratory Respiratory exam: Present: respiratory distress, other (Expiratory rales). Absent: wheezes - Cardiovascular Cardiovascular exam: Present: regular rate, bradycardia - Abdominal Exam Abdominal exam: Present: soft, Non-Tender, normal bowel sounds. Absent: tenderness, distention, guarding, rebound, rigidity - Expanded Lower Extremity Exam Lower leg exam: Present: swelling, other (Pitting edema). Absent: palpable cord Foot/toe exam: Present: swelling Neurovascular/Tendon exam: Present: normal capillary refill. Absent: pulse deficit, motor deficit, sensory deficit Gait: not tested/not observed - Back Exam Back exam: Present: normal inspection, full ROM. Absent: tenderness - Neurological Exam Neurological exam: Present: alert, oriented X3 - Psychiatric Psychiatric exam: Present: normal affect, anxious - Skin Skin exam: Present: warm, dry, intact, pallor. Absent: diaphoresis Course Course Narrative: Care is discussed with the patient and family. Her troponin is persistently elevated and she just continues to refuse any intervention. I discussed care with Dr. Beltran at 11:30 AM. Verbal orders have been obtained for her observation in the hospital. Vital Signs Temperature 96.8 F L 10/17/18 10:34 Pulse Rate 42 10/17/18 10:34 Respiratory Rate 22 10/17/18 10:34 Blood Pressure 147/63 10/17/18 10:34 O2 Sat by Pulse Oximetry 86 10/17/18 10:34 Temperature 96.8 F L 10/17/18 10:34 Pulse Rate 116 10/17/18 10:43 Respiratory Rate 16 10/17/18 11:21 Blood Pressure 147/63 10/17/18 10:43 O2 Sat by Pulse Oximetry 91 10/17/18 11:21 Oxygen Delivery Oxygen Delivery Nasal Cannula Shortness of Breath/Dyspnea - Differential Diagnosis Likely: acute exacerbation of chronic obstructive airways disease, congestive heart failure - Medical Records Medical records reviewed: Yes I reviewed the patient's medical records. IMPRESSION: Patient respiratory motion artifact limited exam without definite evidence for pulmonary embolism as above. Small bilateral pleural effusions, right larger than left. Patchy ground-glass opacities to the lungs bilaterally in predominantly peribronchovascular distribution but also with a somewhat mosaic attenuation pattern, worsened from prior exam. Differential considerations would include pulmonary edema, multifocal infectious/inflammatory infiltrates, as well as air trapping potentially relating to small airway disease. Stable mediastinal and hilar lymphadenopathy, nonspecific but possibly reactive. Stable appearance to pulmonary nodules to the left lung as above. These appear unchanged since 07/07/2016 and are felt to reflect benign etiology and without necessity for continued dedicated follow-up. Stable cardiomegaly. Atherosclerosis to include coronary artery disease. D/ / 10/10/2018 12:04:32 Regulo Sawant MD / winsome - Lab Data Lab results reviewed: Yes I reviewed the patient's lab results. Result diagrams: 10/17/18 10:53 10/17/18 10:53 Lab Results 10/17/18 10/17/18 10/17/18 Range/Units 10:53 10:53 10:53 WBC 15.9 H D (4.3-11.1) K/mcL RBC 4.53 (3.82-4.97) M/mcL Hgb 12.7 (11.5-15.4) g/dL Hct 39.3 (35.3-44.9) % MCV 86.8 (83.0-100.0) fL MCH 28.0 (28.0-33.3) pg MCHC 32.3 (31.6-35.5) g/dL RDW 15.3 H (11.5-14.5) % Plt Count 362 (140-400) K/mcL MPV 10.7 (9.4-12.4) fL Immature Gran % 0.7 (0-4) % Seg Neutrophils % 83.3 % Lymphocytes % 7.9 % Monocytes % 7.4 % Eosinophils % 0.4 % Basophils % 0.3 % Neutrophils # 13.2 H (1.6-8.9) K/mcL Lymphocytes # 1.3 (0.6-4.6) K/mcL Monocytes # 1.2 (0.0-1.3) K/mcL Eosinophils # 0.1 (0.0-0.6) K/mcL Basophils # 0.1 (0.0-0.2) K/mcL PT 14.4 H (9.4-12.1) Seconds INR 1.3 Sodium 138 (136-145) mEq/L Potassium 3.9 (3.5-5.1) mEq/L Chloride 96 L (98-107) mEq/L Carbon Dioxide 29 (23-29) mEq/L BUN 31 H (8-23) mg/dL Creatinine 0.87 (0.60-1.20) mg/dL Est GFR ( Amer) > 60 (> 60) Est GFR (Non-Af Amer) > 60 (> 60) BUN/Creatinine Ratio 36 H (6-26) Glucose 140 H (70-105) mg/dL Calculated Osmolality 295 (280-300) Lactic Acid (0.5-2.2) mmol/L Calcium 10.1 (8.6-10.3) mg/dL Troponin I 0.11 H* (< 0.04) ng/mL B-Natriuretic Peptide (Less than 100) pg/mL 10/17/18 10/17/18 Range/Units 10:53 10:53 WBC (4.3-11.1) K/mcL RBC (3.82-4.97) M/mcL Hgb (11.5-15.4) g/dL Hct (35.3-44.9) % MCV (83.0-100.0) fL MCH (28.0-33.3) pg MCHC (31.6-35.5) g/dL RDW (11.5-14.5) % Plt Count (140-400) K/mcL MPV (9.4-12.4) fL Immature Gran % (0-4) % Seg Neutrophils % % Lymphocytes % % Monocytes % % Eosinophils % % Basophils % % Neutrophils # (1.6-8.9) K/mcL Lymphocytes # (0.6-4.6) K/mcL Monocytes # (0.0-1.3) K/mcL Eosinophils # (0.0-0.6) K/mcL Basophils # (0.0-0.2) K/mcL PT (9.4-12.1) Seconds INR Sodium (136-145) mEq/L Potassium (3.5-5.1) mEq/L Chloride (98-107) mEq/L Carbon Dioxide (23-29) mEq/L BUN (8-23) mg/dL Creatinine (0.60-1.20) mg/dL Est GFR ( Amer) (> 60) Est GFR (Non-Af Amer) (> 60) BUN/Creatinine Ratio (6-26) Glucose (70-105) mg/dL Calculated Osmolality (280-300) Lactic Acid 1.5 (0.5-2.2) mmol/L Calcium (8.6-10.3) mg/dL Troponin I (< 0.04) ng/mL B-Natriuretic Peptide 2662 H (Less than 100) pg/mL - Radiology Data Radiology results reviewed: Yes I reviewed the patient's radiology results. Single view chest x-rays performed. This shows bilateral interstitial increased markings consistent with pulmonary edema as well as bilateral effusions. The cardiac silhouette is not significantly enlarged. I do not see focal infiltrate or pneumothorax. This is on my interpretation. Impressions Chest X-Ray 10/17/18 10:36 IMPRESSION: CHF with small bilateral pleural effusions, which are slightly increased in size from 7 days prior. D/ / Evens King MD / Evens King MD Interpreting Provider: Evens King MD - EKG Data EKG attestation: Yes I reviewed and interpreted this EKG. EKG results narrative: EKG appears to be third degree heart block with ventricular escape with a rate of 49. I do not see ST or T-wave changes for acute ischemia or infarction. This had some septal T wave inversion which is unchanged from prior EKG from October 10. This is on my interpretation.
[2018-10-17 11:01] LABS: Basophils # 0.1 K/mcL (0.0-0.2); Basophils % 0.3 %; Eosinophils # 0.1 K/mcL (0.0-0.6); Eosinophils % 0.4 %; Hematocrit 39.3 % (35.3-44.9); Hemoglobin 12.7 g/dL (11.5-15.4); Immature Granulocytes % 0.7 % (0-4); Lymphocytes # 1.3 K/mcL (0.6-4.6); Lymphocytes % 7.9 %; Mean Corpuscular HGB Conc 32.3 g/dL (31.6-35.5); Mean Corpuscular Volume 86.8 fL (83.0-100.0); Mean Platelet Volume 10.7 fL (9.4-12.4); Monocytes # 1.2 K/mcL (0.0-1.3); Monocytes % 7.4 %; Platelet Count 362 K/mcL (140-400); Red Blood Count 4.53 M/mcL (3.82-4.97); Red Cell Distribution Width 15.3 % (11.5-14.5); Segmented Neutrophils % 83.3 %; White Blood Count 15.9 K/mcL (4.3-11.1)
[2018-10-17 11:11] LABS: INR 1.3; Neutrophils # 13.2 K/mcL (1.6-8.9); Prothrombin Time 14.4 Seconds (9.4-12.1)
[2018-10-17 11:16] LABS: BUN/Creatinine Ratio 36 (6-26); Blood Urea Nitrogen 31 mg/dL (8-23); Calcium 10.1 mg/dL (8.6-10.3); Carbon Dioxide 29 mEq/L (23-29); Chloride 96 mEq/L (98-107); Glucose 140 mg/dL (70-105); Osmolality,Calculated 295 (280-300); Potassium 3.9 mEq/L (3.5-5.1); Sodium 138 mEq/L (136-145); eGFR For African Americans > 60 (> 60); eGFR For Non-African Americans > 60 (> 60)
[2018-10-17 11:29] LABS: Troponin I 0.11 ng/mL (< 0.04)
[2018-10-17] MEDS ORDERED: Ondansetron ODT 4 MG TAB.RAPDIS SL PRN (12:18)
[2018-10-17] MEDS ORDERED: Mag Hydrox/Al Hydrox/Simeth 30 ML UDC PO PRN (12:18)
[2018-10-17] MEDS ORDERED: MOM Conc 10 ML UD.LIQ PO PRN (12:18)
[2018-10-17] MEDS ORDERED: Naloxone 0.4 MG/ML INJ IVP PRN (12:18)
[2018-10-17 12:20] VITALS: BP 139/58
--- NOTE | 2018-10-18 17:53 | Electrocardiograph Report ---
[place] [id number] Test Date: 2018-10-17 Pat Name: María Rivera Department: EDP-14 Room: [facility] Gender: F Lead Auditor: : 1940 Requested By: Joey Bains Order Number: [id number] Reading MD: Dawn Krause Measurements Intervals [place] Rate: 140 P: 0 MI: 212 QRS: 78 QRSD: 82 T: 223 QT: 249 QTc: 413 Interpretive Statements Complete AV block Ventricular escape rhythm Electronically Signed On 10-18-2018 17:51:15 EDT by Dawn Krause
--- NOTE | 2018-10-19 17:19 | Internal Med Progress Note ---
Date of Encounter: 10/19/18 Time of Encounter: 17:15 - Subjective Interval history: Patient return to ER with worsening dyspnea. Orders were initially written by ER physician for her to be admitted to observation status. However after conferring with social security benefits interviewer she was admitted to swing bed instead. See swing bed H&P for details. - Constitutional Vitals: Temp Pulse Resp BP Pulse Ox 96.8 F L 45 30 139/58 94 10/17/18 10:34 10/17/18 12:18 10/17/18 12:18 10/17/18 12:18 10/17/18 12:18 Internal Medicine: Result - Labs CBC & Chem 7: 10/17/18 10:53 10/17/18 10:53 - ABG Interpretation ABG results: PT/INR, D-dimer PT 14.4 Seconds (9.4-12.1) H 10/17/18 10:53 Consult Discharge Plan - Plan Referrals: Rachelle Nunez, RETAIL DIRECTOR [Primary Care Provider] - 1 week
== END 2018-10-17 12:45 | disposition other institution (70) ==
LOC: EMEROOPIK 10:32 → INPPIK 10:32
PROVIDERS: ADMIT Internal Medicine; ATTEND Internal Medicine

== ENCOUNTER 2018-10-17 14:24 | Inpatient (IN) ==
[2018-10-17] MEDS ORDERED: Nitroglycerin 0.4 MG TAB.SUBL SL PRN (15:20)
[2018-10-17] MEDS: Albuterol 2.5 MG/3 ML NEBULIZER IH PRN (19:29)
[2018-10-17] MEDS: *HR* Ticagrelor 90 MG TABLET PO SCH (20:15)
[2018-10-18] MEDS: ALPRAZolam 0.5 MG TABLET PO PRN ×2 (00:51→19:58)
[2018-10-18] MEDS: Bumetanide 1 MG TABLET PO SCH (10:02)
[2018-10-18] MEDS: Potassium Chloride Elixir 20 MEQ/15 ML UDC PO SCH (10:02)
[2018-10-18] MEDS: *HR* Ticagrelor 90 MG TABLET PO SCH ×2 (10:02→19:59)
[2018-10-18] MEDS: Isosorbide MONOnitrate (24 HR) 60 MG TAB.ER.24H PO SCH (10:02)
--- NOTE | 2018-10-18 11:26 | Internal Med History&Physical ---
Date of Encounter: 10/18/18 Time of Encounter: 11:00 Assessment and Plan (1) Congestive heart failure Current visit: No Status: Acute She has been restarted on Bumex and isosorbide. Echocardiogram will be ordered to further evaluate. Qualifiers: Heart failure type: unspecified Heart failure chronicity: acute on chronic Qualified Code(s): I50.9 - Heart failure, unspecified (2) Neutrophilic leukocytosis Current visit: Yes Status: Acute Chest x-ray showed no obvious infiltrate. She has remained afebrile. Recheck labs in a.m. (3) Hyperglycemia Current visit: Yes Status: Acute Check hemoglobin A1c in a.m. (4) CAD (coronary artery disease) Current visit: Yes Status: Acute Continue Lipitor, Imdur, and Brilinta Qualifiers: Coronary Disease-Associated Artery/Lesion type: unspecified vessel or lesion type [place] vs. transplanted heart: [place] heart Associated angina: angina presence unspecified Qualified Code(s): I25.10 - Atherosclerotic heart disease of [place] coronary artery without angina pectoris (5) Third degree AV block Current visit: No Status: Chronic She has refused pacemaker placement. (6) Elevated troponin Current visit: No Status: Acute Suspect troponin leak from heart failure. Echocardiogram will be ordered. Internal Medicine - H&P: HPI Chief complaint: Dyspnea Admitted From: Emergency Dept Plans for Post Hospital Care: Home History of present illness: Ms. Rivera is a 78 year old female who came to emergency room complaining of increased dyspnea over the proceeding hours. She had been hospitalized at [facility] acute-care October 10- with exacerbation of CHF. She improved clinically and was discharged to swing bed but left AMA from swing bed a few hours after admission. She states she resumed her previous home medications but became dyspneic so returned to emergency room. She was directly admitted to swing bed for ongoing care needs. She was hospitalized at [facility] with STEMI 07/08/2018. She refused C. She was found to have third-degree AV block which was previously known but again refused pacemaker. She stated she was "too old for that". She was prescribed aspirin, Lipitor, lisinopril, Brilinta, and prn Nitrostat but signed out AMA. She was hospitalized at [facility] 08/30/2018 for CHF but signed out AMA the evening of 08/31/2018. She denies hypertension,angina, DVT or pulmonary embolus. Past Med Surg Social Fam HX - Past Medical History Medical history: COPD, coronary artery disease, GERD, hyperlipidemia, hypertension, myocardial infarction, other Additional medical history: hiatal hernia Psychiatric history: no psych history - Past Surgical History Surgical History: cholecystectomy - Social History Smoking Status: Former smoker Smokeless Tobacco Status: No Alcohol use: none Drug use: none Internal Medicine - H&P: Meds Atorvastatin [Lipitor] 40 mg PO HS 08/30/18 [History] Nitroglycerin [Nitrostat] 0.4 mg SL Q5MIN PRN MDD 3 08/30/18 [History] Ticagrelor [Brilinta] 90 mg PO BID 08/30/18 [History] ALPRAZolam [Xanax 0.5 MG Tablet] 0.5 mg PO Q6H PRN tablet 10/14/18 [Rx] Albuterol Neb [Proventil Neb] 2.5 mg IH Q2H PRN inhsol 10/14/18 [Rx] Bumetanide [Bumex] 1.5 mg PO DAILY tablet 10/14/18 [Rx] Isosorbide MONOnitrate (24 HR) [Imdur] 120 mg PO DAILY 30 Days tab.er.24h 10/14/18 [Rx] Potassium Chloride Elixir [Potassium Chloride] 20 meq PO DAILY udc 10/14/18 [Rx] Allergy/AdvReac Type Severity Reaction Status Date / Time No Known Allergies Allergy Verified 07/08/18 11:30 All Systems PM: A 10-system review of systems was performed and is negative for pertinent findings except as documented above in the HPI. Review of systems: Review of systems from her [facility] hospitalization H&P 10/10/2018 were reviewed and revised as below. Gen.: Her weight has been decreased from 85.4 kg on 07/08/2018 to present weight of 69.763 kg Cardiovascular: As per history of present illness Respiratory: She smoked from age [age] up to 2-1/2 packs per day. She has not had PFTs and does not wear home oxygen. GI: She has had cholecystectomy. She has GERD. She denies disorders of her liver or exocrine pancreas : She has had occasional hematuria but has not had evaluation. She denies other kidney or bladder disorders. Neurologic: She denies large distribution strokes or seizures. Endocrine: She denies diabetes thyroid disease or hyperlipidemia Hematology/oncology: She denies blood disorders cancers or anemia Psychiatric: She has anxiety and depression but denies other mental health issues Musculoskeletal: She has DJD but denies gout or other bone joint or muscle disorders. - Constitutional Vitals: Temp Pulse Resp BP Pulse Ox 97.5 F L 38 32 134/57 95 10/18/18 07:05 10/18/18 07:05 10/18/18 07:05 10/18/18 07:05 10/18/18 07:05 Exam: Gen.: She is a well-developed well-nourished female sitting in bed who appears minimally dyspneic at rest HEENT: Head is atraumatic and normocephalic. Eyes: EOMI. There is no scleral icterus. Mouth: Mucosa is moist. Neck: Supple and nontender. There is no thyromegaly or adenopathy noted. Heart: Regular without murmurs gallops or ectopics. She is bradycardic with rate approximately 40/m. Lungs: She has diminished breath sounds diffusely. No wheezing is heard. Abdomen: Soft and nontender. No masses or guarding are noted. Extremities: She has 2+ edema on the dorsum of the feet and lower legs bilaterally. Dorsalis pedis and posterior tibial pulses are not palpated. Neurologic: Mental status: She is talkative and a good historian. Cranial nerves: Smile is symmetric. Forehead wrinkles bilaterally. Tongue protrudes midline. EOMI. Motor: There is no pronator drift. Cerebellar: Finger to nose is intact bilaterally. Skin: Warm and dry
[2018-10-18] MEDS ORDERED: Furosemide 40 MG/4 ML VIAL IVP ONE (14:11)
[2018-10-18] MEDS ORDERED: Perflutren Lipid Microsphere 1.3 ML in 0.9 % Sodium Chloride 8.7 ML IVP ONE (16:36)
[2018-10-19] MEDS: ALPRAZolam 0.5 MG TABLET PO PRN ×2 (03:43→20:57)
[2018-10-19] MEDS ORDERED: ALPRAZolam 0.5 MG TABLET PO ONE (04:08)
[2018-10-19 06:12] LABS: Basophils % 0.3 %; Eosinophils # 0.2 K/mcL (0.0-0.6); Eosinophils % 1.6 %; Hematocrit 34.7 % (35.3-44.9); Immature Granulocytes % 0.7 % (0-4); Lymphocytes % 7.9 %; Mean Corpuscular HGB Conc 31.7 g/dL (31.6-35.5); Mean Corpuscular Hemoglobin 28.4 pg (28.0-33.3); Mean Corpuscular Volume 89.7 fL (83.0-100.0); Mean Platelet Volume 11.1 fL (9.4-12.4); Monocytes # 1.3 K/mcL (0.0-1.3); Neutrophils # 9.4 K/mcL (1.6-8.9); Platelet Count 292 K/mcL (140-400); Red Blood Count 3.87 M/mcL (3.82-4.97); Segmented Neutrophils % 78.5 %
[2018-10-19 06:36] LABS: BUN/Creatinine Ratio 44 (6-26); Blood Urea Nitrogen 35 mg/dL (8-23); Calcium 9.4 mg/dL (8.6-10.3); Carbon Dioxide 35 mEq/L (23-29); Chloride 97 mEq/L (98-107); Glucose 98 mg/dL (70-105); Magnesium 1.9 mg/dL (1.6-2.6); Osmolality,Calculated 298 (280-300); Potassium 3.7 mEq/L (3.5-5.1); Sodium 140 mEq/L (136-145); eGFR For African Americans > 60 (> 60); eGFR For Non-African Americans > 60 (> 60)
[2018-10-19 09:53] LABS: Estimated Average Glucose 120 mg/dl
[2018-10-19] MEDS: Isosorbide MONOnitrate (24 HR) 60 MG TAB.ER.24H PO SCH (12:45)
[2018-10-19] MEDS: Bumetanide 1 MG TABLET PO SCH (12:45)
[2018-10-19] MEDS: Potassium Chloride Elixir 20 MEQ/15 ML UDC PO SCH (12:45)
[2018-10-19] MEDS: *HR* Ticagrelor 90 MG TABLET PO SCH ×2 (12:45→20:58)
--- NOTE | 2018-10-19 16:57 | Internal Med Progress Note ---
Date of Encounter: 10/19/18 Time of Encounter: 16:20 - Assessment and plan (1) Congestive heart failure Current Visit: No Status: Acute Assessment and plan: October 19. Echocardiogram showed LVEF of 30-35%. There was mild to moderate tricuspid regurgitation and severe pulmonary hypertension with estimated RVSP > 75 mmHg. The interventricular septum and posterior wall thickness measurements were 0.90 each. There was LAE at 4.10 cm. E/A ratio was 2.3. BN peptide improved today to 1672. Continue Bumex and Imdur I spoke with the patient about her overall condition and prognosis and recommended she be transitioned to a SNF before considering returning home. She was agreeable to this. I notified her sons and they agreed with plan. They wished her to go to [facility] [place]. Qualifiers: Heart failure type: unspecified Heart failure chronicity: acute on chronic Qualified Code(s): I50.9 - Heart failure, unspecified (2) Neutrophilic leukocytosis Current Visit: Yes Status: Acute Assessment and plan: October 19. Improved with WBC 12.0 and decreased left shift. Continue to observe without medication. (3) Hyperglycemia Current Visit: Yes Status: Acute Assessment and plan: October 19. Hemoglobin A1c satisfactory at 5.8%. (4) CAD (coronary artery disease) Current Visit: Yes Status: Acute Assessment and plan: October 19. Continue Lipitor, Imdur, and Brilinta Qualifiers: Coronary Disease-Associated Artery/Lesion type: unspecified vessel or lesion type [place] vs. transplanted heart: [place] heart Associated angina: angina presence unspecified Qualified Code(s): I25.10 - Atherosclerotic heart disease of [place] coronary artery without angina pectoris (5) Third degree AV block Current Visit: No Status: Chronic Assessment and plan: October 19. She has refused pacemaker placement. (6) Elevated troponin Current Visit: No Status: Acute Assessment and plan: May 21. Suspect troponin leak from heart failure. - Subjective Interval history: October 19. She has no new complaints. - Constitutional Vitals: Temp Pulse Resp BP Pulse Ox 97.3 F L 35 16 106/49 99 10/18/18 19:06 10/19/18 08:22 10/19/18 08:22 10/19/18 08:22 10/19/18 08:22 Exam: She is resting in bed. She states she still has dyspnea. She appears tired. I reviewed her medications, lab results, and echocardiogram report. Internal Medicine: Result - Labs CBC & Chem 7: 10/19/18 04:45 10/19/18 04:45 Labs: Short CBC 10/19/18 Range/Units 04:45 WBC 12.0 H (4.3-11.1) K/mcL Hgb 11.0 L D (11.5-15.4) g/dL Hct 34.7 L (35.3-44.9) % Plt Count 292 (140-400) K/mcL Neutrophils # 9.4 H (1.6-8.9) K/mcL BMP 10/19/18 04:45 Sodium 140 Potassium 3.7 Chloride 97 L Carbon Dioxide 35 H BUN 35 H Creatinine 0.80 Glucose 98 Calcium 9.4 - Impressions Impressions Echocardiogram 10/18/18 11:35 Impressions: LVEF 30-35%. Moderately dilated left ventricle. Severe segmental left ventricular systolic dysfunction. There is no LV thrombus. Atypical septal motion consistent with bundle branch block. Indeterminate diastolic function. Right ventricle not well visualized. Mild-moderate tricuspid regurgitation. Severe pulmonary hypertension. Estimated RVSP is >75 mmHg. Pleural effusion noted. Left Ventricular Wall Motion: Rest Echo Findings The apex, apical inferior, apical anterior, mid anterior, apical septal, mid inferior septal, apical lateral, mid anterior lateral and mid anterior septal castorena were hypokinetic. All other wall segments showed normal motion. Findings: Study Quality * Technically sub-optimal due to poor echocardiographic windows. ECG Findings * Rhythm appears to be atrial flutter with a bundle branch block. Left Ventricle * LVEF 30-35%. * Moderately dilated left ventricle. * Severe segmental left ventricular systolic dysfunction. * There is no LV thrombus. * Atypical septal motion consistent with bundle branch block. * Indeterminate diastolic function. Right Ventricle * Right ventricle not well visualized. Left Atrium * Mildly dilated left atrium. Right Atrium * Normal right atrial size. Interatrial Septum * Interatrial septum not well evaluated. Aortic Valve * Trileaflet aortic valve. * Mildly sclerotic aortic valve leaflets. * Trace aortic regurgitation. * No aortic stenosis. Mitral Valve * Normal mitral valve structure. * Moderate-severe mitral regurgitation. * No mitral stenosis. Tricuspid Valve * Normal tricuspid valve structure. * Mild-moderate tricuspid regurgitation. * Severe pulmonary hypertension. * Estimated RVSP is >75 mmHg. Pulmonic Valve * Pulmonic valve is not well visualized. * Trace pulmonic regurgitation. Aorta * Normally sized aortic root. Pericardium * The pericardium appears normal. IVC * Normal IVC dimensions and inspiratory collapse. Pulmonary Artery * Normal visualized portions of the main pulmonary artery. Consult Discharge Plan - Plan Referrals: NONE,PCP [Primary Care Provider] - 1 week
[2018-10-20] MEDS: ALPRAZolam 0.5 MG TABLET PO PRN ×2 (10:08→22:17)
[2018-10-20] MEDS: Acetaminophen 325 MG TABLET PO PRN ×2 (10:09→22:17)
[2018-10-20] MEDS: Isosorbide MONOnitrate (24 HR) 60 MG TAB.ER.24H PO SCH (10:09)
[2018-10-20] MEDS: Bumetanide 1 MG TABLET PO SCH (10:09)
[2018-10-20] MEDS: Potassium Chloride Elixir 20 MEQ/15 ML UDC PO SCH (10:09)
[2018-10-20] MEDS: *HR* Ticagrelor 90 MG TABLET PO SCH ×2 (10:10→22:18)
[2018-10-20] MEDS: Albuterol 2.5 MG/3 ML NEBULIZER IH PRN (20:25)
[2018-10-21 07:30] VITALS: BP 119/53
[2018-10-21] MEDS: Isosorbide MONOnitrate (24 HR) 60 MG TAB.ER.24H PO SCH (12:01)
[2018-10-21] MEDS: Bumetanide 1 MG TABLET PO SCH (12:01)
[2018-10-21] MEDS: *HR* Ticagrelor 90 MG TABLET PO SCH (12:02)
[2018-10-21] MEDS: Potassium Chloride Elixir 20 MEQ/15 ML UDC PO SCH (12:05)
[2018-10-21] MEDS: ALPRAZolam 0.5 MG TABLET PO PRN (12:05)
--- NOTE | 2018-10-21 15:07 | Discharge Summary ---
Date of Encounter: 10/21/18 Time of Encounter: 14:58 - Discharge Diagnosis (1) Congestive heart failure Priority: Primary Status: Acute Qualifiers: Heart failure type: unspecified Heart failure chronicity: acute on chronic Qualified Code(s): I50.9 - Heart failure, unspecified (2) Neutrophilic leukocytosis Priority: Secondary Status: Acute (3) Hyperglycemia Priority: Secondary Status: Acute (4) CAD (coronary artery disease) Priority: Secondary Status: Acute Qualifiers: Coronary Disease-Associated Artery/Lesion type: unspecified vessel or lesion type [place] vs. transplanted heart: [place] heart Associated angina: angina presence unspecified Qualified Code(s): I25.10 - Atherosclerotic heart disease of [place] coronary artery without angina pectoris (5) Third degree AV block Priority: Secondary Status: Chronic (6) Elevated troponin Priority: Secondary Status: Acute Hospital course: Ms. Rivera is a 78 year old female who came to emergency room complaining of increased dyspnea over the proceeding hours. She had been hospitalized at [facility] acute-care October 10- with exacerbation of CHF. She improved clinically and was discharged to swing bed but left AMA from swing bed a few hours after admission. She states she resumed her previous home medications but became dyspneic so returned to emergency room. She was directly admitted to swing bed for ongoing care needs. Initial orders were written by the emergency room physician. I saw her on October 18 and performed the swing bed history and physical. She was restarted on heart failure medications. BN peptide improved to 1672 by October 19. Echocardiogram showed LVEF of 30-35%. There was mild to moderate tricuspid regurgitation and severe pulmonary hypertension with estimated RVSP > 75 mmHg. The interventricular septum and posterior wall thickness measurements were 0.90 each. There was LAE at 4.10 cm. E/A ratio was 2.3. I spoke with patient and family about her condition and prognosis and recommended SNF placement before considering returning home. They were agreeable to this and chose [facility] [place]. WBC improved to 12.0 with decreased left shift without anabiotic use. This will be monitored at the snf. Hemoglobin A1c returned satisfactory at 5.8%. She will follow with me at [facility] [place]. - Time Spent with Patient Total time spent providing and/or coordinating discharge services: - Discharge Medications Prescriptions: New Acetaminophen [Tylenol] 650 mg PO Q6HR PRN tablet PRN Reason: Mild Pain ALPRAZolam [Xanax 0.5 MG Tablet] 0.25 mg PO Q4H PRN 30 Days #120 tablet PRN Reason: Anxiety Continued Atorvastatin [Lipitor] 40 mg PO HS Ticagrelor [Brilinta] 90 mg PO BID Nitroglycerin [Nitrostat] 0.4 mg SL Q5MIN PRN MDD 3 PRN Reason: Chest Pain Bumetanide [Bumex] 1.5 mg PO DAILY tablet Isosorbide MONOnitrate (24 HR) [Imdur] 120 mg PO DAILY 30 Days tab.er.24h Potassium Chloride Elixir [Potassium Chloride] 20 meq PO DAILY udc Albuterol Neb [Proventil Neb] 2.5 mg IH Q2H PRN inhsol PRN Reason: Shortness Of Breath/Wheezing ALPRAZolam [Xanax 0.5 MG Tablet] 0.5 mg PO Q6H PRN tablet PRN Reason: Anxiety Home Medications: Atorvastatin [Lipitor] 40 mg PO HS 08/30/18 [History] Nitroglycerin [Nitrostat] 0.4 mg SL Q5MIN PRN MDD 3 08/30/18 [History] Ticagrelor [Brilinta] 90 mg PO BID 08/30/18 [History] ALPRAZolam [Xanax 0.5 MG Tablet] 0.5 mg PO Q6H PRN tablet 10/14/18 [Rx] Albuterol Neb [Proventil Neb] 2.5 mg IH Q2H PRN inhsol 10/14/18 [Rx] Bumetanide [Bumex] 1.5 mg PO DAILY tablet 10/14/18 [Rx] Isosorbide MONOnitrate (24 HR) [Imdur] 120 mg PO DAILY 30 Days tab.er.24h 10/14/18 [Rx] Potassium Chloride Elixir [Potassium Chloride] 20 meq PO DAILY udc 10/14/18 [Rx] ALPRAZolam [Xanax 0.5 MG Tablet] 0.25 mg PO Q4H PRN 30 Days #120 tablet 10/21/18 [Rx] Acetaminophen [Tylenol] 650 mg PO Q6HR PRN tablet 10/21/18 [Rx] Allergies/Adverse Reactions: Allergy/AdvReac Type Severity Reaction Status Date / Time No Known Allergies Allergy Verified 07/08/18 11:30 Date of admission: 10/17/18 15:13 Primary care physician: Rachelle Nunez [employer] Consults: 10/17/18 15:04 Consult to Occupational Therapy [CONS] Routine Comment: Evaluate, develop and implement POC Reason for Consult: Evaluate, develop and implement POC Does patient have active BEDREST order?: No Is patient medically & hemodynamically stable?: Yes Patient assessed for mobility or mobilized this visit?: No Consult to Physical Therapy [CONS] Routine Comment: Evaluate, develop and implement POC Reason for Consult: Evaluate, develop and implement POC Does patient have active BEDREST order?: No Is patient medically & hemodynamically stable?: Yes Patient assessed for mobility or mobilized this visit?: No 10/19/18 09:48 Consult to Speech Therapy [CONS] Routine Comment: Evaluate, develop and implement POC Reason for Consult: difficulty swallowing Call Completed: Yes - Constitutional Vitals: Temp Pulse Resp BP Pulse Ox 97.5 F L 35 16 119/53 96 10/21/18 07:26 10/21/18 07:26 10/21/18 07:26 10/21/18 07:26 10/21/18 07:26 - Patient Status Disposition: Transfer SNF - Discharge Instructions - Diet and Activity Activity: wear oxygen at all times Diet: low salt diet
--- NOTE | 2018-10-21 15:14 | Physician Discharge Referral ---
ExtendedCare Referral Info Transfer To: [facility] Provider in Charge: Devin Provider in Charge after Transfer: PCP (Devin) - Diagnosis (1) Congestive heart failure Priority: Primary Status: Acute (2) Neutrophilic leukocytosis Priority: Secondary Status: Acute (3) Hyperglycemia Priority: Secondary Status: Acute (4) CAD (coronary artery disease) Priority: Secondary Status: Acute (5) Third degree AV block Priority: Secondary Status: Chronic (6) Elevated troponin Priority: Secondary Status: Acute Prognosis: Fair Aware of Diagnosis: Patient, Family Aware of Prognosis: Patient, Family - Transfer Medications Prescriptions: ALPRAZolam [Xanax 0.5 MG Tablet] 0.25 mg PO Q4H PRN 30 Days #120 tablet PRN Reason: Anxiety Home Medications: Atorvastatin [Lipitor] 40 mg PO HS 08/30/18 [History] Nitroglycerin [Nitrostat] 0.4 mg SL Q5MIN PRN MDD 3 08/30/18 [History] Ticagrelor [Brilinta] 90 mg PO BID 08/30/18 [History] ALPRAZolam [Xanax 0.5 MG Tablet] 0.5 mg PO Q6H PRN tablet 10/14/18 [Rx] Albuterol Neb [Proventil Neb] 2.5 mg IH Q2H PRN inhsol 10/14/18 [Rx] Bumetanide [Bumex] 1.5 mg PO DAILY tablet 10/14/18 [Rx] Isosorbide MONOnitrate (24 HR) [Imdur] 120 mg PO DAILY 30 Days tab.er.24h 10/14/18 [Rx] Potassium Chloride Elixir [Potassium Chloride] 20 meq PO DAILY udc 10/14/18 [Rx] ALPRAZolam [Xanax 0.5 MG Tablet] 0.25 mg PO Q4H PRN 30 Days #120 tablet 10/21/18 [Rx] Acetaminophen [Tylenol] 650 mg PO Q6HR PRN tablet 10/21/18 [Rx] Allergies/Adverse Reactions: Allergy/AdvReac Type Severity Reaction Status Date / Time No Known Allergies Allergy Verified 07/08/18 11:30 - Respiratory Orders Oxygen / L per min (2 L/m by nasal cannula as needed to keep sats greater than 90%.) Smoking Cessation: Smoking cessation has been advised. For more information, call the [place] Tobacco Quit Line at 3-433-ZDDC-NOW. - Lab Orders Lab Orders: Other (include drug levels w/frequency) (CBC with differential, BMP, magnesium, BN peptide 10/24/2018 and monthly) - Rehabiliation Orders Rehab Potential: Fair Rehab Orders: Evaluation for Physical Therapy, Evaluation for Occupational Therapy - Diet Orders Cardiac CERTIFICATION: I certify that the transfer of the above named patient to an Extended Care Facility is necessary for the continuing treatment of the diagnosis listed. The above information is true and accurate reflection of patient's current condition. Confidential - Redisclosure prohibited without a patient's written consent.
== END 2018-10-21 17:33 | DRG 292 ==
LOC: INPPIK 15:13
PROVIDERS: ADMIT Internal Medicine; ATTEND Internal Medicine